=== PATIENT | male | born 1950 | race American Indian/Alaskan Native ===

== ENCOUNTER 2020-11-28 17:04 | Inpatient (IN) ==
[2020-11-28] MEDS ORDERED: 0.9 % SODIUM CHLORIDE 1,000 ML IV ONE ×2 (18:02→19:27)
--- NOTE | 2020-11-28 18:17 | Emergency Department Note ---
Abdominal Pain HPI General Chief Complaint: Abdominal Pain Stated Complaint: abdominal pain Time Seen by Provider: 11/28/20 17:16 Source: patient Mode of arrival: ambulatory Limitations: no limitations History of Present Illness HPI Narrative: This is a 70-year-old poorly controlled diabetic male who is seen for complaints of abdominal pain with persistent nausea and vomiting for the last week and a half. He was seen in the [facility] ER in [place] last night for the very same and a CT of the abdomen pelvis with contrast revealed bilateral renal stones with the largest on the right measuring up to 1.2 cm but no ureteral stone or hydronephrosis. No evidence of diverticulitis. No evidence of appendicitis. The gallbladder and bile ducts were within normal limits. Pancreas was unremarkable. There was a note of a T9-T10 disc space paraspinal inflammatory change that could represent disci tis/osteomyelitis. Patient had a CBC that showed no elevated white blood cell count and he was afebrile. He had a urine dip that was negative. He was discharged home. He underwent an EGD today which was negative for acute findings (his has the report). Patient continues to complain of weakness, fatigue, and lethargy. He is also describing some left upper quadrant abdominal pain. He was noted to have an elevated lipase of 168 last night. He has had a poor appetite for the last 3 days with anorexia for the last 48 hours. He is also complaining of midthoracic back pain. This has been going on for about 2 weeks. It does not radiate. He denies fevers chills or sweats. Denies dysuria or hematuria. Denies changes in bowel habits, denies diarrhea. He was admitted 1 month ago at [facility] for urosepsis. His states that he recovered well from that and then started having the above described symptoms about 2 weeks ago with nausea and vomiting starting about a week and a half ago. He has a history of spinal fusion lumbar spine as well as a spinal stimulator. He is not able to get an MRI. Referral was made for outpatient myelography to rule out discitis definitively, but he is not had this procedure done. He does complain of some bilateral lower extremity weakness and decreased sensation in the right lower extremity. He denies radiculopathy. Related Data Home Medications Medication Instructions Recorded Confirmed aspirin [Ecotrin] 81 mg PO DAILY 02/09/15 11/22/20 cyclobenzaprine 10 mg PO TIDP PRN 02/09/15 11/22/20 enalapril maleate 20 mg PO DAILY 02/09/15 11/22/20 gabapentin 600 mg PO HS 02/09/15 11/22/20 metformin 500 mg PO BIDCC 02/09/15 11/22/20 simvastatin 10 mg PO HS 02/09/15 11/22/20 docusate sodium [Stool Softener] 50 - 150 mg PO WEEKLY PRN 10/01/15 11/22/20 insulin aspart U-100 [Novolog] See Protocol SQ AC 10/01/15 11/22/20 insulin glargine [Lantus] 14 unit SQ HS 10/01/15 11/22/20 lidocaine 1 ea TP Q24HP PRN 10/01/15 11/22/20 polyethylene glycol 3350(bulk) 1 gm MC WEEKLY PRN 10/01/15 11/22/20 tamsulosin 0.4 mg PO DAILY 10/01/15 11/22/20 ergocalciferol (vitamin D2) 50,000 unit PO WEEKLY 10/09/15 11/22/20 [Vitamin D2] duloxetine 60 mg capsule,delayed 60 mg PO QDAY 01/19/20 11/22/20 release sprinkle Previous Rx's Medication Instructions Recorded naloxone 4 mg/actuation nasal spray 4 mg INTRANASAL Q2M #2 each 08/16/20 morphine 100 mg tablet,extended 100 mg PO BID #60 tab MDD 2 11/20/20 release morphine 30 mg immediate release 30 mg PO Q6H PRN #60 tab 11/20/20 tablet Allergies Allergy/AdvReac Type Severity Reaction Status Date / Time No Known Drug Allergies Allergy Verified 11/28/20 17:07 Review of Systems ROS ROS Narrative: Narrative: All systems ED: reviewed and negative except as stated. [facility] Narrative Patient History Narrative: Narrative: Medical/Surgical/Family History All Active Problems (Updated 11/28/20 @ 20:21 by Jessi Prado PA-C) Urinary tract infection (Acute) Diabetic nephropathy (Acute) Hepatomegaly (Acute) Discitis of thoracic region (Acute) Abdominal pain (Acute) Back pain (Acute) Nausea & vomiting (Acute) Radiculopathy, lumbar region (Chronic) Pain, joint, knee, right (Chronic) Pain, joint, knee, left (Chronic) Other chronic postprocedural pain (Chronic) Chronic pain (Chronic) Spondylosis without myelopathy or radiculopathy, lumbar region (Chronic) Knee osteoarthritis (Acute) Medical History Chronic pain Knee osteoarthritis Other chronic postprocedural pain Pain, joint, knee, left Pain, joint, knee, right Radiculopathy, lumbar region Spondylosis without myelopathy or radiculopathy, lumbar region Surgical History History of surgery LESI #1 L2-3 w/sed 03/08/2020 Family History Other No pertinent family history Social History Smoking Status: Former smoker Exam Narrative Narrative: General: AOx3, NAD, nontoxic appearing. Pleasant and conversant. Morbidly obese. HEENT: PERRLA, EOMI, normocephalic. Moist mucous membranes. Normal facies and normal dentition. Chest: Symmetric, no pain to palpation Respiratory: Lungs clear to auscultation bilaterally. No respiratory distress. Unlabored breathing. Heart: Regular rate and rhythm, no murmurs/clicks/rubs. Abdomen: Non-tender, Non distended, normal bowel tones. No organomegaly. Extremities: Warm and well perfused. No edema. DP 2+ bilaterally. No venous stasis. Neuro: No focal deficits. Cranial nerves II-XII normal. Skin: Warm dry, no rashes or lesions, no cyanosis. Psych: Normal mood and affect Heme/Lymph: No bruising General Limitations: no limitations Course Course Course Narrative: 70-year-old male presents with complaints of abdominal pain localized to the left upper quadrant. He also complains of midthoracic back pain with CT scan last night showing inflammatory changes at the T9-T10 level could not rule out discitis/osteomyelitis. Reevaluation(s) Reevaluation #1: Patient is unable to obtain an MRI due to his spinal stimulator. Radiology is not available for myelography tonight. We will obtain a CRP and sed rate. Check a CMP and a CBC. Start IV fluid rehydration and check a lipase. Reevaluation #2: CRP is elevated at 3.6, sed rate is still pending. CBC without leukocytosis. Lipase is within normal limits. Concern remains for T9-T10 discitis based on CT findings from his work-up it [facility] yesterday. We will start IV antibiotics and query the hospitalist for admission and possible myelogram tomorrow. Vital Signs Vital signs: Vital Signs Temperature 97.3 F 11/28/20 17:05 Pulse Rate 90 11/28/20 17:05 Respiratory Rate 16 11/28/20 17:05 Blood Pressure 150/75 11/28/20 17:05 Pulse Oximetry (%) 94 11/28/20 17:05 Temperature 97.3 F 11/28/20 17:05 Pulse Rate 85 11/28/20 20:16 Respiratory Rate 16 11/28/20 17:05 Blood Pressure 163/83 11/28/20 20:16 Pulse Oximetry (%) 96 11/28/20 20:16 MDM MDM Narrative Medical decision making narrative: Abdominal pain Back pain Weakness Discitis/osteomyelitis Antibiotics have been initiated for this patient for discitis/osteomyelitis. He is continued on IV fluids. He has been signed out to Dr. Rodriguez at change of shift, please see his note for further details. Lab Data Result diagrams: 11/28/20 18:12 11/28/20 18:12 Labs: Lab Results 11/28/20 11/28/20 Range/Units 18:12 18:12 WBC 5.4 (4.5-11.0) K/mcL RBC 3.48 L (4.50-5.90) M/mcL Hgb 10.6 L (13.5-16.5) g/dL Hct 31.3 L (41.0-55.0) % MCV 89.9 (80.0-100.0) fL MCH 30.5 (26.0-34.0) pg MCHC 33.9 (31.0-36.0) g/dL RDW 13.4 (11.5-14.5) % Plt Count 178 (140-440) K/mcL MPV 8.6 (7.4-10.4) fL Neut % (Auto) 70.8 (38.0-78.0) % Lymph % (Auto) 18.5 (15.0-49.0) % [place] % (Auto) 8.4 (1.0-12.0) % Eos % (Auto) 1.9 (0.0-7.0) % Baso % (Auto) 0.4 (0.0-2.0) % Lymph # (Auto) 0.99 L (1.50-4.80) K/mcL [place] # (Auto) 0.45 (0.10-0.90) K/mcL Eos # (Auto) 0.10 (0.00-0.70) K/mcL Baso # (Auto) 0.02 (0.00-0.20) K/mcL Absolute Neutrophils 3.79 (1.80-8.00) K/mcL Sodium 135 (133-145) mmol/L Potassium 4.2 (3.3-5.1) mmol/L Chloride 100 (96-108) mmol/L Carbon Dioxide 27 (22-30) mmol/L Anion Gap 8.0 (8.0-16.0) BUN 10 (8-23) mg/dL Creatinine 0.5 L (0.7-1.2) mg/dL GFR Calculation 110 Glucose 129 H (70-105) mg/dL Calcium 8.8 (8.6-10.4) mg/dL Total Bilirubin 0.5 (0.1-1.0) mg/dL AST 23 (<40) U/L ALT 11 (<40) U/L Alkaline Phosphatase 120 H (39-117) U/L C-Reactive Protein 3.60 H (0.03-0.80) mg/dL Total Protein 8.1 (5.9-8.4) gm/dL Albumin 3.0 L (3.2-5.2) gm/dL Globulin 5.1 H (2.2-3.7) gm/dL Albumin/Globulin Ratio 0.6 L (1.0-2.3) Lipase 21 (7-60) U/L Discharge Plan Patient/Caregiver Discharge Instructions Pt seen by TREE WRAPPER/PA only: Yes Clinical Impression: Discitis of thoracic region, Abdominal pain, Back pain, Nausea & vomiting Patient Disposition: Still a Patient Follow up with: Luis Manuel Gil MD [Primary Care Provider] - Prescriptions: No Action Narcan 4 mg/actuation spray,non-aerosol 4 mg INTRANASAL Q2M Qty: 2 RF: 0 duloxetine 60 mg capsule, delayed rel sprinkle 60 mg PO QDAY RF: 0 morphine 100 mg tablet extended release 100 mg PO BID MDD 2 Qty: 60 RF: 0 morphine 30 mg tablet 30 mg PO Q6H PRN (Reason: breakthrough pain) Qty: 60 RF: 0 cyclobenzaprine 10 MG tablet 10 mg PO TIDP PRN (Reason: Spasms) RF: 0 metformin 500 MG tablet 500 mg PO BIDCC RF: 0 gabapentin 600 MG tablet 600 mg PO HS RF: 0 enalapril maleate 20 MG tablet 20 mg PO DAILY RF: 0 simvastatin 10 MG tablet 10 mg PO HS RF: 0 aspirin [Ecotrin Low Strength] 81 MG tablet,delayed release (DR/EC) 81 mg PO DAILY RF: 0 insulin glargine [Lantus U-100 Insulin] 1 UNIT/0.01 ML unit 14 unit SQ HS RF: 0 docusate sodium [Stool Softener] 50 MG capsule 50 - 150 mg PO WEEKLY PRN (Reason: constipaton) RF: 0 tamsulosin 0.4 MG capsule 0.4 mg PO DAILY RF: 0 insulin aspart U-100 [Novolog U-100 Insulin aspart] 100 UNIT/ML solution See Protocol unit SQ AC RF: 0 lidocaine 1 EACH adhesive patch,medicated 1 ea TP Q24HP PRN (Reason: Pain) RF: 0 polyethylene glycol 3350(bulk) 1 GM granules 1 gm MC WEEKLY PRN (Reason: Constipation) RF: 0 ergocalciferol (vitamin D2) [Vitamin D2] 50,000 UNIT capsule 50,000 unit PO WEEKLY RF: 0
[2020-11-28 19:10] LABS: Basophils # (Auto) 0.02 K/mcL (0.00-0.20); Basophils % (Auto) 0.4 % (0.0-2.0); Eosinophils % (Auto) 1.9 % (0.0-7.0); Hematocrit 31.3 % (41.0-55.0); Hemoglobin 10.6 g/dL (13.5-16.5); Lymphocytes # (Auto) 0.99 K/mcL (1.50-4.80); Lymphocytes % (Auto) 18.5 % (15.0-49.0); Mean Cell Volume 89.9 fL (80.0-100.0); Mean Corpuscular HGB Conc 33.9 g/dL (31.0-36.0); Mean Platelet Volume 8.6 fL (7.4-10.4); Monocytes # (Auto) 0.45 K/mcL (0.10-0.90); Monocytes % (Auto) 8.4 % (1.0-12.0); Neutrophils % (Auto) 70.8 % (38.0-78.0); Platelet Count 178 K/mcL (140-440); RBC 3.48 M/mcL (4.50-5.90); Red Cell Distribution Width 13.4 % (11.5-14.5); WBC 5.4 K/mcL (4.5-11.0)
[2020-11-28 19:30] LABS: ALT/SGPT 11 U/L (<40); AST/SGOT 23 U/L (<40); Albumin/Globulin Ratio 0.6 (1.0-2.3); Alkaline Phosphatase 120 U/L (39-117); Bilirubin,Total 0.5 mg/dL (0.1-1.0); Blood Urea Nitrogen 10 mg/dL (8-23); Calcium 8.8 mg/dL (8.6-10.4); Carbon Dioxide 27 mmol/L (22-30); Chloride 100 mmol/L (96-108); Globulin 5.1 gm/dL (2.2-3.7); Glomerular Filtration Rate 110; Glucose 129 mg/dL (70-105)
[2020-11-28] MEDS ORDERED: cefTRIAXone 2 GM in DEXTROSE 5% IN WATER 50 ML IV ONE (19:58)
[2020-11-28] MEDS ORDERED: VANCOMYCIN 2,000 MG in 0.9 % SODIUM CHLORIDE 500 ML IV ONE (19:58)
[2020-11-28] MEDS ORDERED: KETOROLAC 30 MG/ML VIAL IV ONE (20:18)
[2020-11-28] MEDS ORDERED: HYDROmorphone 0.5 MG/0.5 ML SYRINGE IV PRN (20:18)
[2020-11-28 20:26] LABS: Erythrocyte Sedimentation Rate 93 mm/hr (0-15)
--- NOTE | 2020-11-28 20:51 | Emergency Department Note ---
Abdominal Pain HPI General Chief Complaint: Abdominal Pain Stated Complaint: abdominal pain Time Seen by Provider: 11/28/20 17:16 Source: patient Mode of arrival: ambulatory Limitations: no limitations History of Present Illness HPI Narrative: Narrative: Related Data Home Medications Medication Instructions Recorded Confirmed aspirin [Ecotrin] 81 mg PO DAILY 02/09/15 11/22/20 cyclobenzaprine 10 mg PO TIDP PRN 02/09/15 11/22/20 enalapril maleate 20 mg PO DAILY 02/09/15 11/22/20 gabapentin 600 mg PO HS 02/09/15 11/22/20 metformin 500 mg PO BIDCC 02/09/15 11/22/20 simvastatin 10 mg PO HS 02/09/15 11/22/20 docusate sodium [Stool Softener] 50 - 150 mg PO WEEKLY PRN 10/01/15 11/22/20 insulin aspart U-100 [Novolog] See Protocol SQ AC 10/01/15 11/22/20 insulin glargine [Lantus] 14 unit SQ HS 10/01/15 11/22/20 lidocaine 1 ea TP Q24HP PRN 10/01/15 11/22/20 polyethylene glycol 3350(bulk) 1 gm MC WEEKLY PRN 10/01/15 11/22/20 tamsulosin 0.4 mg PO DAILY 10/01/15 11/22/20 ergocalciferol (vitamin D2) 50,000 unit PO WEEKLY 10/09/15 11/22/20 [Vitamin D2] duloxetine 60 mg capsule,delayed 60 mg PO QDAY 01/19/20 11/22/20 release sprinkle Previous Rx's Medication Instructions Recorded naloxone 4 mg/actuation nasal spray 4 mg INTRANASAL Q2M #2 each 08/16/20 morphine 100 mg tablet,extended 100 mg PO BID #60 tab MDD 2 11/20/20 release morphine 30 mg immediate release 30 mg PO Q6H PRN #60 tab 11/20/20 tablet Allergies Allergy/AdvReac Type Severity Reaction Status Date / Time No Known Drug Allergies Allergy Verified 11/28/20 17:07 Review of Systems ROS ROS Narrative: Narrative: PFSH Narrative Patient History Narrative: Narrative: Medical/Surgical/Family History All Active Problems (Updated 11/28/20 @ 20:21 by Jessi Prado PA-C) Urinary tract infection (Acute) Diabetic nephropathy (Acute) Hepatomegaly (Acute) Discitis of thoracic region (Acute) Abdominal pain (Acute) Back pain (Acute) Nausea & vomiting (Acute) Radiculopathy, lumbar region (Chronic) Pain, joint, knee, right (Chronic) Pain, joint, knee, left (Chronic) Other chronic postprocedural pain (Chronic) Chronic pain (Chronic) Spondylosis without myelopathy or radiculopathy, lumbar region (Chronic) Knee osteoarthritis (Acute) Medical History Chronic pain Knee osteoarthritis Other chronic postprocedural pain Pain, joint, knee, left Pain, joint, knee, right Radiculopathy, lumbar region Spondylosis without myelopathy or radiculopathy, lumbar region Surgical History History of surgery LESI #1 L2-3 w/sed 03/08/2020 Family History Other No pertinent family history Social History Smoking Status: Former smoker Exam Narrative Narrative: Narrative: General Limitations: no limitations Course Vital Signs Vital signs: Vital Signs Temperature 97.3 F 11/28/20 17:05 Pulse Rate 90 11/28/20 17:05 Respiratory Rate 16 11/28/20 17:05 Blood Pressure 150/75 11/28/20 17:05 Pulse Oximetry (%) 94 11/28/20 17:05 Temperature 98.8 F 11/28/20 20:43 Pulse Rate 87 11/28/20 20:46 Respiratory Rate 16 11/28/20 17:05 Blood Pressure 145/66 11/28/20 20:46 Pulse Oximetry (%) 95 11/28/20 20:46 MDM MDM Narrative Medical decision making narrative: Narrative: Patient was signed out to me by the TRAN, Jessi, and I agree with work-up and plan thus far. Please see her documentation for further details about the initial aspects of this patient's visit. It is my understanding that the patient was coming in for evaluation of back pain and abdominal pain. This is been slowly getting worse over the past few weeks, and yesterday had a CT scan performed by [facility] which showed possible signs of discitis/osteomyelitis of his thoracic spine. It is unclear why but they discharged him home without any further plan from what I understand. He came in here for reevaluation. Vital signs here are stable and he is not appear to be septic or toxic. Abdominal exam overall is benign. I have low suspicion for acute surgical abdomen. No elevated white blood count, though he does have elevated inflammatory markers of CRP and ESR. Given the findings on the CT scan from yesterday, this is concerning as osteomyelitis/discitis could be potentially a severe infection. Because of this I do feel that he would benefit from further work-up. He has been started on broad-spectrum antibiotics for osteomyelitis/discitis of Rocephin and vancomycin. Blood cultures of been drawn. Unfortunately he does not qualify for an MRI apparently due to a old spinal stimulator he has in place. We discussed options with the radiologist and he stated that the patient could be scheduled for a myelogram tomorrow for evaluation of this. I discussed this all with the hospitalist who agreed with the plan of admission. Patient and his w rehana agree with the plan as well. Lab Data Result diagrams: 11/28/20 18:12 11/28/20 18:12 Labs: Lab Results 11/28/20 11/28/20 Range/Units 18:12 18:12 WBC 5.4 (4.5-11.0) K/mcL RBC 3.48 L (4.50-5.90) M/mcL Hgb 10.6 L (13.5-16.5) g/dL Hct 31.3 L (41.0-55.0) % MCV 89.9 (80.0-100.0) fL MCH 30.5 (26.0-34.0) pg MCHC 33.9 (31.0-36.0) g/dL RDW 13.4 (11.5-14.5) % Plt Count 178 (140-440) K/mcL MPV 8.6 (7.4-10.4) fL Neut % (Auto) 70.8 (38.0-78.0) % Lymph % (Auto) 18.5 (15.0-49.0) % [place] % (Auto) 8.4 (1.0-12.0) % Eos % (Auto) 1.9 (0.0-7.0) % Baso % (Auto) 0.4 (0.0-2.0) % Lymph # (Auto) 0.99 L (1.50-4.80) K/mcL [place] # (Auto) 0.45 (0.10-0.90) K/mcL Eos # (Auto) 0.10 (0.00-0.70) K/mcL Baso # (Auto) 0.02 (0.00-0.20) K/mcL Absolute Neutrophils 3.79 (1.80-8.00) K/mcL ESR 93 H (0-15) mm/hr Sodium 135 (133-145) mmol/L Potassium 4.2 (3.3-5.1) mmol/L Chloride 100 (96-108) mmol/L Carbon Dioxide 27 (22-30) mmol/L Anion Gap 8.0 (8.0-16.0) BUN 10 (8-23) mg/dL Creatinine 0.5 L (0.7-1.2) mg/dL GFR Calculation 110 Glucose 129 H (70-105) mg/dL Calcium 8.8 (8.6-10.4) mg/dL Total Bilirubin 0.5 (0.1-1.0) mg/dL AST 23 (<40) U/L ALT 11 (<40) U/L Alkaline Phosphatase 120 H (39-117) U/L C-Reactive Protein 3.60 H (0.03-0.80) mg/dL Total Protein 8.1 (5.9-8.4) gm/dL Albumin 3.0 L (3.2-5.2) gm/dL Globulin 5.1 H (2.2-3.7) gm/dL Albumin/Globulin Ratio 0.6 L (1.0-2.3) Lipase 21 (7-60) U/L Discharge Plan Patient/Caregiver Discharge Instructions Pt seen by ACADEMIC SUPPORT ASSISTANT/PA only: Yes Clinical Impression: Discitis of thoracic region, Abdominal pain, Back pain, Nausea & vomiting Patient Disposition: Still a Patient Follow up with: Luis Manuel Gil MD [Primary Care Provider] - Prescriptions: No Action Narcan 4 mg/actuation spray,non-aerosol 4 mg INTRANASAL Q2M Qty: 2 RF: 0 duloxetine 60 mg capsule, delayed rel sprinkle 60 mg PO QDAY RF: 0 morphine 100 mg tablet extended release 100 mg PO BID MDD 2 Qty: 60 RF: 0 morphine 30 mg tablet 30 mg PO Q6H PRN (Reason: breakthrough pain) Qty: 60 RF: 0 cyclobenzaprine 10 MG tablet 10 mg PO TIDP PRN (Reason: Spasms) RF: 0 metformin 500 MG tablet 500 mg PO BIDCC RF: 0 gabapentin 600 MG tablet 600 mg PO HS RF: 0 enalapril maleate 20 MG tablet 20 mg PO DAILY RF: 0 simvastatin 10 MG tablet 10 mg PO HS RF: 0 aspirin [Ecotrin Low Strength] 81 MG tablet,delayed release (DR/EC) 81 mg PO DAILY RF: 0 Lantus U-100 Insulin 1 UNIT/0.01 ML unit 14 unit SQ HS RF: 0 Stool Softener 50 MG capsule 50 - 150 mg PO WEEKLY PRN (Reason: constipaton) RF: 0 tamsulosin 0.4 MG capsule 0.4 mg PO DAILY RF: 0 insulin aspart U-100 [Novolog U-100 Insulin aspart] 100 UNIT/ML solution See Protocol unit SQ AC RF: 0 lidocaine 1 EACH adhesive patch,medicated 1 ea TP Q24HP PRN (Reason: Pain) RF: 0 polyethylene glycol 3350(bulk) 1 GM granules 1 gm MC WEEKLY PRN (Reason: Constipation) RF: 0 ergocalciferol (vitamin D2) [Vitamin D2] 50,000 UNIT capsule 50,000 unit PO WEEKLY RF: 0
[2020-11-28] MEDS ORDERED: ONDANSETRON 4 MG/2 ML VIAL IV ONE (20:54)
[2020-11-28] MEDS ORDERED: BISACODYL 10 MG SUPP.RECT PR PRN (22:17)
[2020-11-28] MEDS ORDERED: VANCOMYCIN PER PHARMACY IV SCH (22:17)
[2020-11-28] MEDS ORDERED: DEXTROSE 31 GM ORAL.SUSP PO PRN (22:17)
[2020-11-28] MEDS ORDERED: ACETAMINOPHEN 650 MG/65 ML BAG IV PRN (22:17)
[2020-11-28] MEDS ORDERED: POLYETHYLENE GLYCOL 3350 17 GM PACKET PO PRN (22:17)
[2020-11-28] MEDS ORDERED: POTASSIUM CHLORIDE 40 MEQ in DEXTROSE 5% IN WATER 500 ML IV PRN (22:17)
[2020-11-28] MEDS ORDERED: DEXTROSE 50% 50 ML VIAL IV PRN (22:17)
[2020-11-28] MEDS ORDERED: ACETAMINOPHEN 325 MG TABLET PO PRN (22:17)
[2020-11-28] MEDS ORDERED: ONDANSETRON 4 MG ODT TABLET SL PRN (22:17)
[2020-11-28] MEDS ORDERED: ONDANSETRON 4 MG/2 ML VIAL IV PRN (22:17)
[2020-11-28] MEDS: 0.9 % SODIUM CHLORIDE 1,000 ML IV SCH (22:34)
[2020-11-28] MEDS ORDERED: POLYETHYLENE GLYCOL 1 GM MC PRN (22:37)
[2020-11-28] MEDS ORDERED: DOCUSATE SODIUM 50 MG PO PRN (22:37)
[2020-11-28] MEDS ORDERED: MORPHINE 30 MG PO PRN (22:37)
[2020-11-28] MEDS ORDERED: LIDOCAINE PATCH TOPICAL PRN (22:37)
--- NOTE | 2020-11-28 22:37 | Internal Med History&Physical ---
HPI History of Present Illness Patient information: Note initiated : 11/28/20 at 10:25 pm Service Date, if different from initiated Date: [] Patient: Flex Chavez 70 y/o M admitted on 11/28/20 for abdominal pain. Chief Complaint: Nausea vomiting abdominal pain, chills History of present illness: Mr. Keeley Mo is a 70 year old M morbidly obese with a history of chronic pain on 300 mg morphine a day/DM type II/HTN/anxiety/(who presents to the ER with increasing weakness/abdominal pain. Patient has had the symptoms for a while and underwent EGD as an Luis today by Dr. Lovelace that revealed gastritis. However he was advised to go to the ER because symptoms were out of proportion to the findings of endoscopy. Notably patient has been progressively getting weaker over the last month since he was admitted at [facility] on October 25 this year. He has noted gradual decline in functionality/associate loss of appetite/lower back pain/malaise/drenching sweats and fever. Night before last he was evaluated at [facility] with similar symptoms. CT scan revealed T9-T10 suspected discitis/vertebral osteomyelitis however he was discharged home after short treatment in ER During today's work-up at [facility] White count 5.4, ESR 93, sodium 135, creatinine 0.5, CRP 3.6, lipase 21.CT scan reviewed from [facility] for T9-T10 discitis/bilateral nonobstructive nephrolithiasis. Patient was started on antibiotics after cultures were drawn. Subsequently hospitalist service was consulted. At the time of my evaluation patient is alert but anxious. He is accompanied with his Alice. She was able to answer most the question and provide history as above. He denies loss of bladder function or stool or urine incontinence. Further denies lower extremity abnormal sensation/weakness/jerking movements. He denies joint pain, rash, headache, photophobia but endorses to generalized malaise weakness fatigue and persistent abdominal pain associated nausea and vomiting. Review of systems 10 point review system was performed and is negative except for 1 discussed above PFSH PFSH All Active Problems (Updated 11/28/20 @ 20:21 by Jessi Prado PA-C) Urinary tract infection (Acute) Diabetic nephropathy (Acute) Hepatomegaly (Acute) Discitis of thoracic region (Acute) Abdominal pain (Acute) Back pain (Acute) Nausea & vomiting (Acute) Radiculopathy, lumbar region (Chronic) Pain, joint, knee, right (Chronic) Pain, joint, knee, left (Chronic) Other chronic postprocedural pain (Chronic) Chronic pain (Chronic) Spondylosis without myelopathy or radiculopathy, lumbar region (Chronic) Knee osteoarthritis (Acute) Medical History Chronic pain Knee osteoarthritis Other chronic postprocedural pain Pain, joint, knee, left Pain, joint, knee, right Radiculopathy, lumbar region Spondylosis without myelopathy or radiculopathy, lumbar region Surgical History History of surgery LESI #1 L2-3 w/sed 03/08/2020 Family History Other No pertinent family history MEDS/ALLERGIES Home Medications and Allergies Home Medications Medication Instructions Recorded Confirmed Type aspirin [Ecotrin] 81 mg PO DAILY 02/09/15 11/28/20 History cyclobenzaprine 10 mg PO TIDP PRN 02/09/15 11/28/20 History enalapril maleate 20 mg PO DAILY 02/09/15 11/28/20 History gabapentin 600 mg PO HS 02/09/15 11/28/20 History metformin 500 mg PO BIDCC 02/09/15 11/28/20 History simvastatin 10 mg PO 02/09/15 11/28/20 History docusate sodium [Stool Softener] 50 - 150 mg PO WEEKLY PRN 10/01/15 11/28/20 History insulin aspart U-100 [Novolog] See Protocol SQ AC 10/01/15 11/28/20 History insulin glargine [Lantus] 14 unit SQ HS 10/01/15 11/28/20 History lidocaine 1 ea TP Q24HP PRN 10/01/15 11/28/20 History polyethylene glycol 3350(bulk) 1 gm MC WEEKLY PRN 10/01/15 11/28/20 History tamsulosin 0.4 mg PO DAILY 10/01/15 11/28/20 History ergocalciferol (vitamin D2) 50,000 unit PO WEEKLY 10/09/15 11/28/20 History [Vitamin D2] duloxetine 60 mg capsule,delayed 60 mg PO QDAY 01/19/20 11/28/20 History release sprinkle naloxone 4 mg/actuation nasal spray 4 mg INTRANASAL Q2M #2 each 08/16/20 11/28/20 Rx morphine 100 mg tablet,extended 100 mg PO BID #60 tab MDD 2 11/20/20 11/28/20 Rx release morphine 30 mg immediate release 30 mg PO Q6H PRN #60 tab 11/20/20 11/28/20 Rx tablet Allergies Allergy/AdvReac Type Severity Reaction Status Date / Time No Known Drug Allergies Allergy Verified 11/28/20 17:07 EXAM Constitutional Vitals: Temp Pulse Resp BP Pulse Ox 98.8 F 78 16 165/105 98 11/28/20 20:43 11/28/20 21:31 11/28/20 17:05 11/28/20 21:31 11/28/20 21:31 Alert but anxious Head normocephalic Oral cavity moist No ear nose discharge Eye movement symmetrical Neck supple no lymphadenopathy S1-S2 occasionally irregular Nonlabored breathing Nondistended nontender abdomen Spinal stimulator lower back, with midline incision scar lumbar spine Lower extremity no cyanosis clubbing or joint swelling Skin no suspicious lesion Psych anxious but alert cooperative Neuro normal higher function DATA Data Completed and Pending Labs: Labs from last 24 hours 11/28/20 11/28/20 18:12 18:12 WBC 5.4 RBC 3.48 L Hgb 10.6 L Hct 31.3 L MCV 89.9 MCH 30.5 MCHC 33.9 RDW 13.4 Plt Count 178 MPV 8.6 Neut % (Auto) 70.8 Lymph % (Auto) 18.5 [place] % (Auto) 8.4 Eos % (Auto) 1.9 Baso % (Auto) 0.4 Lymph # (Auto) 0.99 L [place] # (Auto) 0.45 Eos # (Auto) 0.10 Baso # (Auto) 0.02 Absolute Neutrophils 3.79 ESR 93 H Sodium 135 Potassium 4.2 Chloride 100 Carbon Dioxide 27 Anion Gap 8.0 BUN 10 Creatinine 0.5 L GFR Calculation 110 Glucose 129 H Calcium 8.8 Total Bilirubin 0.5 AST 23 ALT 11 Alkaline Phosphatase 120 H C-Reactive Protein 3.60 H Total Protein 8.1 Albumin 3.0 L Globulin 5.1 H Albumin/Globulin Ratio 0.6 L Lipase 21 A/P Narrative A/P Narrative: * T9/T10 discitis- start empiric Rocephin/vancomycin. Blood cultures. Suspected hematogenous seeding. Aggressive source evaluation. CT myelogram in a.m. * DM type II continue basal prandial insulin/CC diet/reduction * History of hypertension continue enalapril * Anxiety disorder continue oxygen * Chronic pain on morphine 100 mg twice daily/intermediate release 30 as needed * Hyperlipidemia on statin * BPH continue tamsulosin * Full code Plan * Inpt admit * Broad empiric antibiotics * Echocardiogram * Aggressive source evaluation with surveillance blood cultures * Pre-existing medical condition management on home medications as above * ID consult * CT myelogram in a.m. * PT OT nutrition support Time Spent With Patient Time: Total time spent is greater than 50% in coordination of care (as documented) at patient's floor/unit and/or counseling patient:
[2020-11-28] MEDS: INSULIN LISPRO 1 UNIT/0.01 ML UNIT SQ SCH (23:17)
[2020-11-28] MEDS ORDERED: morphine 15 MG TABLET ONE (23:38)
[2020-11-28] MEDS ORDERED: HEPARIN 5,000 UNIT/ML VIAL ONE (23:39)
[2020-11-28] MEDS: cefTRIAXone 2 GM in DEXTROSE 5% IN WATER 50 ML IV SCH (23:41)
[2020-11-28] MEDS: 0.9 % SODIUM CHLORIDE 10 ML SYRINGE IV SCH (23:41)
[2020-11-28] MEDS: HEPARIN 5,000 UNIT/ML VIAL SQ SCH (23:41)
[2020-11-28] MEDS: DOCUSATE SODIUM 100 MG CAPSULE PO SCH (23:46)
[2020-11-28] MEDS: SENNOSIDES/DOCUSATE SODIUM 1 TAB TABLET PO SCH (23:47)
[2020-11-29] MEDS ORDERED: MELATONIN 3 MG TABLET PO ONE (00:59)
[2020-11-29] MEDS: MELATONIN 3 MG TABLET PO PRN (00:59)
[2020-11-29] MEDS ORDERED: DOCUSATE SODIUM 100 MG PO PRN (02:30)
[2020-11-29] MEDS: 0.9 % SODIUM CHLORIDE 10 ML SYRINGE IV SCH ×3 (05:18→22:22)
[2020-11-29] MEDS: morphine 30 MG TAB.SR.12H PO SCH ×2 (07:07→20:43)
[2020-11-29] MEDS: INSULIN LISPRO 1 UNIT/0.01 ML UNIT SQ SCH ×4 (07:22→20:50)
[2020-11-29 07:44] LABS: Basophils # (Auto) 0.04 K/mcL (0.00-0.20); Basophils % (Auto) 0.6 % (0.0-2.0); Eosinophils % (Auto) 1.6 % (0.0-7.0); Hematocrit 31.9 % (41.0-55.0); Hemoglobin 10.7 g/dL (13.5-16.5); Lymphocytes # (Auto) 0.93 K/mcL (1.50-4.80); Lymphocytes % (Auto) 14.9 % (15.0-49.0); Mean Cell Volume 90.4 fL (80.0-100.0); Mean Corpuscular HGB Conc 33.5 g/dL (31.0-36.0); Mean Platelet Volume 8.8 fL (7.4-10.4); Monocytes # (Auto) 0.33 K/mcL (0.10-0.90); Monocytes % (Auto) 5.3 % (1.0-12.0); Neutrophils % (Auto) 77.6 % (38.0-78.0); Platelet Count 174 K/mcL (140-440); RBC 3.53 M/mcL (4.50-5.90); Red Cell Distribution Width 13.3 % (11.5-14.5); WBC 6.2 K/mcL (4.5-11.0)
[2020-11-29] MEDS ORDERED: DULAGLUTIDE 1.5 MG/0.5 ML SUB-Q SCH (09:00)
[2020-11-29] MEDS ORDERED: ENALAPRIL MALEATE 20 MG PO SCH (09:00)
[2020-11-29] MEDS ORDERED: morphine 100 MG TABLET.ER PO SCH (09:00)
[2020-11-29 09:03] LABS: ALT/SGPT 10 U/L (<40); AST/SGOT 24 U/L (<40); Albumin 2.9 gm/dL (3.2-5.2); Albumin/Globulin Ratio 0.6 (1.0-2.3); Alkaline Phosphatase 117 U/L (39-117); Bilirubin,Direct < 0.2 mg/dL (0-0.3); Bilirubin,Total 0.5 mg/dL (0.1-1.0); Blood Urea Nitrogen 10 mg/dL (8-23); Calcium 8.7 mg/dL (8.6-10.4); Carbon Dioxide 24 mmol/L (22-30); Chloride 99 mmol/L (96-108); Globulin 4.8 gm/dL (2.2-3.7); Glomerular Filtration Rate 110; Glucose 103 mg/dL (70-105); Lactate Dehydrogenase 201 U/L (135-225); Phosphorous 3.3 mg/dL (2.5-4.5); Triglycerides 109 mg/dL (<150); Uric Acid 4.2 mg/dL (2.5-8.0)
[2020-11-29] MEDS: MULTIVIT,THER IRON,CA,FA & MIN 1 TABLET PO SCH (10:16)
[2020-11-29] MEDS: DOCUSATE SODIUM 100 MG CAPSULE PO SCH ×2 (10:16→20:45)
[2020-11-29] MEDS: DULoxetine 30 MG CAPSULE PO SCH (10:16)
[2020-11-29] MEDS: sitaGLIPtin 100 MG TABLET PO SCH (10:16)
[2020-11-29] MEDS: TAMSULOSIN 0.4 MG CAPSULE PO SCH (10:16)
[2020-11-29] MEDS: ASPIRIN 81 MG TAB.CHEW PO SCH (10:16)
[2020-11-29] MEDS: HEPARIN 5,000 UNIT/ML VIAL SQ SCH ×2 (10:17→20:47)
[2020-11-29] MEDS: VANCOMYCIN 1,500 MG in 0.9 % SODIUM CHLORIDE 500 ML IV SCH ×2 (10:17→20:47)
[2020-11-29] MEDS: PANTOPRAZOLE 40 MG TABLET PO SCH ×2 (10:22→17:02)
--- NOTE | 2020-11-29 10:46 | Internal Med Progress Note ---
SUBJECTIVE Subjective Patient information: Note initiated : 11/29/20 at 10:41 am Service Date, if different from initiated Date: [] Patient: Flex Chavez 70 y/o M admitted on 11/28/20 for abdominal pain. Chief Complaint: [] Interval history: Mr. Keeley Mo is a 70 year old M morbidly obese with a history of chronic pain on 300 mg morphine a day/DM type II/HTN/anxiety/(who presents to the ER with increasing weakness/abdominal pain. Patient has had the symptoms for a while and underwent EGD as an Luis today by Dr. Lovelace that revealed gastritis. However he was advised to go to the ER because symptoms were out of proportion to the findings of endoscopy. Notably patient has been progressively getting weaker over the last month since he was admitted at [place] on October 25 this year. He has noted gradual decline in function ality/associate loss of appetite/lower back pain/malaise/drenching sweats and fever. Night before last he was evaluated at [facility] with similar symptoms. CT scan revealed T9-T10 suspected discitis/vertebral osteomyelitis however he was discharged home after short treatment in ER During today's work-up at [facility] White count 5.4, ESR 93, sodium 135, creatinine 0.5, CRP 3.6, lipase 21.CT scan reviewed from [facility] for T9-T10 discitis/bilateral nonobstructive nephrolithiasis. Patient was started on antibiotics after cultures were drawn. Subsequently hospitalist service was consulted. At the time of my evaluation patient is alert but anxious. He is accompanied with his Alice. She was able to answer most the question and provide history as above. He denies loss of bladder function or stool or urine incontinence. Further denies lower extremity abnormal sensation/weakness/jerking movements. He denies joint pain, rash, headache, photophobia but endorses to generalized malaise weakness fatigue and persistent abdominal pain associated nausea and vomiting. 5/6-patient currently on Rocephin/vancomycin. Case discussed with urology. No clear benefit of CT myelogram. Radiologist recommends continuation of antibiotics as disc space is hard to access for aspiration to rule out infection and the fact that patient has been on antibiotics for over 10 days will likely do a steroid tap. Will consult infectious specialist while continuing vancomy latrell Rocephin per guidelines for management discitis. No evidence of lower extremity weakness/incontinence or cord compression. Complains of abdominal discomfort/burning sensation. Recent EGD gastritis noted. Started on sucralfate/Protonix. On oral narcotics for chronic pain Constitutional Vitals: Vital Signs Temp Pulse Resp BP Pulse Ox 98.2 F 69 24 H 127/49 94 11/29/20 08:02 11/29/20 10:01 11/29/20 10:01 11/29/20 10:01 11/29/20 10:01 Period Temp Pulse Resp BP Sys/Velazquez Pulse Ox Last 24 Hr 97.3 F-99.1 F 61-91 14-24 127-176/49-105 91-100 Intake and Output 11/28/20 11/29/20 11/29/20 21:59 05:59 13:59 Intake Total 1000 1650 Output Total 525 Balance 1000 1125 Weight 122.924 kg 125.464 kg Alert oriented Resting comfortably Nonlabored breathing Anxious Minimally tender abdomen epigastric area Intake & Output: Intake & Output 11/28/20 11/29/20 11/29/20 21:59 05:59 13:59 Intake Total 1000 1650 Output Total 525 Balance 1000 1125 Weight 122.924 kg 125.464 kg Intake: IV 1000 1600 Sodium Chloride 0.9% 1,000 ml @ 1000 1000 Wide Open IV BOLUS ONE Rx#: [id number] Vancomycin 2,000 mg In Sodium 500 Chloride 0.9% 500 ml @ 250 mls/ hr IV ONCE ONE Rx#:[id number] Rocephin 2 gm In Dextrose 5% in 100 Water 50 ml @ 100 mls/hr IV ONCE ONE Rx#:[id number] Oral 50 Output: Void Amount 525 Other: Urine Appearance Clear Urine Color Dark Yellow Stool Consistency Loose OBJ DATA Labs CBC & Chem 7: 11/29/20 05:15 11/29/20 05:15 Labs: Abnormal Lab Results 11/29/20 11/29/20 11/28/20 05:15 05:15 22:36 RBC 3.53 L Hgb 10.7 L Hct 31.9 L Lymph % (Auto) 14.9 L Lymph # (Auto) 0.93 L ESR Creatinine 0.5 L Glucose Magnesium 1.5 L GGT 143 H Alkaline Phosphatase C-Reactive Protein 3.70 H Albumin 2.9 L Globulin 4.8 H Albumin/Globulin Ratio 0.6 L Procalcitonin 0.18 H 11/28/20 11/28/20 18:12 18:12 RBC 3.48 L Hgb 10.6 L Hct 31.3 L Lymph % (Auto) Lymph # (Auto) 0.99 L ESR 93 H Creatinine 0.5 L Glucose 129 H Magnesium GGT Alkaline Phosphatase 120 H C-Reactive Protein 3.60 H Albumin 3.0 L Globulin 5.1 H Albumin/Globulin Ratio 0.6 L Procalcitonin Meds: Medications Acetaminophen (Acetaminophen 325 Mg Tablet) 650 mg PO Q4-6HP PRN; Protocol PRN Reason: Per Pain Protocol/Fever > 101 Aspirin (Aspirin 81 Mg Tab.Chew) 81 mg PO DAILY [facility] Last Admin: 11/29/20 10:16 Dose: 81 mg Documented by: Bisacodyl (Bisacodyl 10 Mg Supp.Rect) 10 mg IA Q2-3DAYS PRN PRN Reason: Constipation Cyclobenzaprine HCl (Cyclobenzaprine 10 Mg Tablet) 10 mg PO TIDP PRN PRN Reason: Spasms Dextrose (Dextrose 50% 50 Ml Vial) 0 ml IV UD PRN PRN Reason: Hypoglycemia Diagnostic Test (Pha) (Accu-Chek 1 Each Strip) 1 each FS ACHS [facility] Last Admin: 11/29/20 07:08 Dose: 1 each Documented by: Docusate Sodium (Docusate Sodium 100 Mg Capsule) 100 mg PO BID [facility] Last Admin: 11/29/20 10:16 Dose: 100 mg Documented by: Duloxetine HCl (Duloxetine 30 Mg Capsule) 60 mg PO QDAY [facility] Last Admin: 11/29/20 10:16 Dose: 60 mg Documented by: Ergocalciferol (Ergocalciferol (Vitamin D2) 50,000 Unit Capsule) 50,000 unit PO Q14D [facility] Gabapentin (Gabapentin 300 Mg Capsule) 600 mg PO HS [facility] Glucose (Dextrose 31 Gm Oral.Susp) 15 gm PO PRN PRN PRN Reason: Hypoglycemia Heparin Sodium (Porcine) (Heparin 5,000 Unit/Ml Vial) 5,000 unit SQ Q12 [facility] Last Admin: 11/29/20 10:17 Dose: 5,000 unit Documented by: Hydromorphone HCl (Hydromorphone 0.5 Mg/0.5 Ml Syringe) 0.25 - 0.5 mg IV Q4HP PRN; Protocol PRN Reason: Per Pain Protocol Potassium Chloride 40 meq/ (Dextrose) 520 mls @ 130 mls/hr IV UD PRN PRN Reason: K+ = or < 3.5 Acetaminophen (Ofirmev) 650 mg in 65 mls @ 130 mls/hr IV Q6HP PRN; Protocol PRN Reason: Per Pain Protocol/Fever > 101 Magnesium Sulfate (Magnesium Sulfate) 2 gm in 50 mls @ 50 mls/hr IV UD PRN PRN Reason: MG = or < 1.7 Sodium Chloride (Sodium Chloride 0.9%) 1,000 mls @ 50 mls/hr IV .Q20H [facility] Stop: 12/01/20 10:16 Last Admin: 11/28/20 22:34 Dose: 50 mls/hr Documented by: Ceftriaxone Sodium 2 gm/ (Dextrose) 50 mls @ 100 mls/hr IV Q24H [facility]; Protocol Last Infusion: 11/29/20 02:25 Dose: Infused Documented by: Vancomycin HCl 1,500 mg/ (Sodium Chloride) 500 mls @ 333.3 mls/hr IV Q12H [facility] Last Admin: 11/29/20 10:17 Dose: 333.3 mls/hr Documented by: Insulin Glargine (Insulin Glargine, Human 1 Unit/0.01 Ml) 14 unit SQ [facility] Insulin Human Lispro (Insulin Lispro 1 Unit/0.01 Ml Unit) 0 unit SQ ACHS [facility]; Protocol Last Admin: 11/29/20 07:22 Dose: Not Given Documented by: Iron Carb/Multivit/Confluence/Folic Acid (Multivit,Ther Iron,Ca,Fa & Min 1 Tablet) 1 tab PO DAILY [facility] Last Admin: 11/29/20 10:16 Dose: 1 tab Documented by: Lidocaine (Lidocaine Patch) 1 patch TOPICAL Q24HP PRN PRN Reason: Pain Melatonin (Melatonin 3 Mg Tablet) 3 mg PO HSP PRN PRN Reason: Insomnia Last Admin: 11/29/20 00:59 Dose: 3 mg Documented by: Morphine Sulfate (Morphine 15 Mg Tablet) 30 mg PO Q6HP PRN PRN Reason: breakthrough pain Morphine Sulfate (Morphine 30 Mg Tab.Sr.12h) 90 mg PO BID [facility]; Protocol Last Admin: 11/29/20 07:07 Dose: 90 mg Documented by: Non-Formulary Medication (Dulaglutide) 1.5 mg SUB-Q WEEKLY [facility] Ondansetron HCl (Ondansetron 4 Mg Odt Tablet) 4 mg SL Q4-6HP PRN; Protocol PRN Reason: Nausea And Vomiting Ondansetron HCl (Ondansetron 4 Mg/2 Ml Vial) 4 mg IV Q4-6HP PRN; Protocol PRN Reason: Nausea And Vomiting Pantoprazole Sodium (Pantoprazole 40 Mg Tablet) 40 mg PO BIDAC [facility] Last Admin: 11/29/20 10:22 Dose: 40 mg Documented by: Polyethylene Glycol (Polyethylene Glycol 3350 17 Gm Packet) 17 gm PO DAILYP PRN PRN Reason: Constipation Senna/Docusate Sodium (Sennosides/Docusate Sodium 1 Tab Tablet) 1 tab PO [facility] Last Admin: 11/28/20 23:47 Dose: Not Given Documented by: Simvastatin (Simvastatin 10 Mg Tablet) 10 mg PO [facility] Sitagliptin Phosphate (Sitagliptin 100 Mg Tablet) 100 mg PO DAILY [facility] Last Admin: 11/29/20 10:16 Dose: 100 mg Documented by: Sodium Chloride (0.9 % Sodium Chloride 10 Ml Syringe) 10 ml IV Q8 [facility] Last Admin: 11/29/20 05:18 Dose: Not Given Documented by: Sucralfate (Sucralfate 1 Gm/10 Ml Oral.Susp) 1 gm PO TIDAC [facility] Tamsulosin HCl (Tamsulosin 0.4 Mg Capsule) 0.4 mg PO DAILY [facility] Last Admin: 11/29/20 10:16 Dose: 0.4 mg Documented by: Vancomycin HCl (Vancomycin Per Pharmacy) 1 order IV UD [facility]; Protocol A/P Narrative A/P Narrative: * T9/T10 discitis-continuing empiric Rocephin/vancomycin. Blood cultures awaited. Suspected hematogenous seeding., No clear benefit of myelogram as per radiology. We will continue antibiotic coverage, ID consult * DM type II continue basal prandial insulin/CC diet/reduction * History of hypertension continue enalapril * Esophagitis with gastritis as noted on EGD 11/28. Continue sucralfate/PPI * Anxiety disorder continue duloxetine * Chronic pain on morphine 100 mg twice daily/intermediate release 30 as needed * Hyperlipidemia on simvastatin * History of hypertension continue DAPHNE inhibitor * History neuropathy continue gabapentin * BPH continue tamsulosin * Full code Plan * ID consult * Broad empiric antibiotics * Await echocardiogram * Pre-existing medical condition management on home medications as above * PT OT nutrition support * Discharge planning per case management Time Spent With Patient Time: Total time spent is greater than 50% in coordination of care (as doc umented) at patient's floor/unit and/or counseling patient: QUALITY VTE Deep Vein Thrombosis/Pulmonary Embolism Present on Admission: No
[2020-11-29] MEDS: LISINOPRIL 20 MG TABLET PO SCH (11:01)
[2020-11-29] MEDS: morphine 15 MG TABLET PO PRN ×2 (11:02→18:56)
[2020-11-29] MEDS: SUCRALFATE 1 GM/10 ML ORAL.SUSP PO SCH ×2 (11:17→17:02)
[2020-11-29] MEDS: HYDROmorphone 0.5 MG/0.5 ML SYRINGE IV PRN ×3 (11:18→22:33)
[2020-11-29] MEDS ORDERED: PROTAMINE 50 MG/5 ML VIAL IV ONE (12:13)
[2020-11-29] MEDS ORDERED: MIDAZOLAM 2 MG/2 ML VIAL IV ONE (14:28)
[2020-11-29] MEDS ORDERED: fentaNYL 100 MCG/2 ML VIAL IV ONE (14:28)
[2020-11-29] MEDS ORDERED: LIDOCAINE 1% 20 ML VIAL SQ ONE (15:27)
[2020-11-29] MEDS: cefTRIAXone 2 GM in DEXTROSE 5% IN WATER 50 ML IV SCH (15:34)
[2020-11-29] MEDS: MAGNESIUM SULFATE 2 GM/50 ML BAG IV PRN (16:58)
--- NOTE | 2020-11-29 17:42 | Infectious Disease Consult ---
HPI Data of Consult Primary Care Provider: Luis Manuel Gil Consult Narrative Patient Information: Note initiated : 11/29/20 at 5:24 pm Service Date, if different from initiated Date: [] Patient: Flex Chavez 70 y/o M admitted on 11/28/20 for abdominal pain. Chief Complaint: [] Flex is a 70-year-old man with obesity and diabetes. He was transferred from [place] for admission at [facility] yesterday with he currently rates his pain at 3 out of 10. He had a CT scan completed November 27 of abdomen and pelvis. Bilateral nephrolithiasis was identified. He also had findings of T9-T10 discitis with osteomyelitis. He had upper endoscopy yesterday to evaluate abdominal pain. It revealed gastritis. He was started on vancomycin and Rocephin yesterday. Dr. Casper asked for consultation for treatment of discitis. Radiology was able to sample T9-T10 disc space today for Gram stain, aerobic and anaerobic bacterial culture as well as 16 S ribosomal PCR panel. He last had a lumbar epidural steroid injection March 08, 2020. He has a previous history of right total shoulder arthroplasty and right total knee arthroplasty. He was hospitalized at [facility] October 25 through October 28 For urinary tract infection. He e vidently also had continued oral antibiotic therapy by his primary care provider for persistent UTI. is not familiar with bacterial organism reported to her. Sed rate yesterday 93 he has had worsening back and left upper quadrant discomfort for the past 3 weeks. He has had decreased ability to walk. He lives in [place]. Dr. Gil in [facility] is his primary care provider. He discontinued tobacco in 1989. 2 dogs at home. He also recalls having subjective fevers and sweats 2-3 times over the past 3 weeks. cc:: CC: Real Roque Review of Systems Review of systems: Generally: Subjective fevers and chills 2-3 times over the last 3 weeks. No documented fevers. HEENT: No headache or sore throat. No neck complaints. Pulmonary: No current cough or shortness of breath. Cardiac: No chest pain. GI: No constipation or diarrhea. Previous cholecystectomy. He reports left upper quadrant discomfort. Musculoskeletal. Positive back pain currently 3 out of 10. He has a history of spinal cord stimulator placement approximately 1999. It is currently nonfunctional. He has a previous history of lumbar fusion in 2002 L4-S1. He reports that his back pain is more in the mid back and then low back. : Identified bilateral kidney stones up to 1.2 cm. He plans to have follow-up with urology. Extremities: No complaints of edema. Skin no rash. He denies joint pain in right shoulder or right knee which have previously been replaced. Endocrine: He reports diabetes for approximately 12 years. Immunology: The only infection that he reports recently was the UTI hospitalization at [facility] in October 25 to October 28. PFSH PFSH All Active Problems (Updated 11/29/20 @ 17:42 by Armani Pfeiffer MD) Diabetes mellitus (Acute) Urinary tract infection (Acute) Diabetic nephropathy (Acute) Hepatomegaly (Acute) Discitis of thoracic region (Acute) Abdominal pain (Acute) Back pain (Acute) Nausea & vomiting (Acute) Radiculopathy, lumbar region (Chronic) Pain, joint, knee, right (Chronic) Pain, joint, knee, left (Chronic) Other chronic postprocedural pain (Chronic) Chronic pain (Chronic) Spondylosis without myelopathy or radiculopathy, lumbar region (Chronic) Knee osteoarthritis (Acute) Medical History Chronic pain Knee osteoarthritis Other chronic postprocedural pain Pain, joint, knee, left Pain, joint, knee, right Radiculopathy, lumbar region Spondylosis without myelopathy or radiculopathy, lumbar region Surgical History History of surgery LESI #1 L2-3 w/sed 03/08/2020 Family History (Updated 11/29/20 @ 17:34 by Armani Pfeiffer MD) Father Esophageal cancer MEDS/ALLERGIES Home Medications and Allergies Home Medications Medication Instructions Recorded Confirmed Type aspirin [Ecotrin] 81 mg PO DAILY 02/09/15 11/29/20 History gabapentin 600 mg PO HS 02/09/15 11/29/20 History metformin 1,000 mg PO BIDCC 02/09/15 11/29/20 History simvastatin 10 mg PO HS 02/09/15 11/29/20 History docusate sodium [Stool Softener] 100 mg PO BID 10/01/15 11/29/20 History insulin aspart U-100 [Novolog] See Protocol SQ AC 10/01/15 11/29/20 History insulin glargine [Lantus] 40 unit SQ HS 10/01/15 11/29/20 History lidocaine See Rx Instructions .ROUTE 10/01/15 11/29/20 History .COMPLEX PRN tamsulosin 0.4 mg PO DAILY 10/01/15 11/29/20 History ergocalciferol (vitamin D2) See Rx Instructions .ROUTE .COMPLEX 10/09/15 11/29/20 History [Vitamin D2] duloxetine 60 mg capsule,delayed 30 mg PO QDAY 01/19/20 11/28/20 History release sprinkle naloxone 4 mg/actuation nasal spray 4 mg INTRANASAL Q2M #2 each 08/16/20 11/28/20 Rx morphine 100 mg tablet,extended 100 mg PO BID #60 tab MDD 2 11/20/20 11/29/20 Rx release morphine 30 mg immediate release 30 mg PO Q6H PRN #60 tab 11/20/20 11/29/20 Rx tablet dulaglutide 1.5 mg SUBCUT WEEKLY 11/29/20 11/29/20 History lisinopril 40 mg PO QDAY 11/29/20 11/29/20 History nystatin 15 unit PO TID 11/29/20 11/29/20 History omeprazole 20 mg PO QDAY 11/29/20 11/29/20 History polyethylene glycol 3350 [Miralax] 17 g PO QDAY 11/29/20 11/29/20 History trazodone 25 mg PO QHS PRN 11/29/20 11/29/20 History Allergies Allergy/AdvReac Type Severity Reaction Status Date / Time No Known Drug Allergies Allergy Verified 11/28/20 17:07 Physical Examination Vital Signs Vital signs: Afebrile. Temp Pulse Resp BP Pulse Ox 98.8 F 65 14 124/62 96 11/29/20 16:01 11/29/20 17:14 11/29/20 17:14 11/29/20 16:01 11/29/20 17:14 Additional Exam Additional exam: General: He is laying on his back in bed. Eyes closed. Appea rs uncomfortable. HEENT: No facial swelling or redness. Mouth is moist. Neck is supple full. Lungs: Clear bilaterally. Heart: Regular rate and rhythm without murmur. Abdomen: Obese soft mild tenderness in the left upper quadrant. No rebound tenderness bowel sounds positive. Extremities: No knee effusions. No lower extremity edema. He did move feet to command. Skin without rash. Right peripheral line in place. Results Laboratory Findings CBC and BMP: 11/29/20 05:15 11/29/20 05:15 Abnormal lab findings: Abnormal Labs 11/28/20 11/28/20 11/28/20 18:12 18:12 22:36 RBC 3.48 L Hgb 10.6 L Hct 31.3 L Lymph % (Auto) Lymph # (Auto) 0.99 L ESR 93 H Creatinine 0.5 L Glucose 129 H Magnesium GGT Alkaline Phosphatase 120 H C-Reactive Protein 3.60 H Albumin 3.0 L Globulin 5.1 H Albumin/Globulin Ratio 0.6 L Procalcitonin 0.18 H 11/29/20 11/29/20 05:15 05:15 RBC 3.53 L Hgb 10.7 L Hct 31.9 L Lymph % (Auto) 14.9 L Lymph # (Auto) 0.93 L ESR Creatinine 0.5 L Glucose Magnesium 1.5 L GGT 143 H Alkaline Phosphatase C-Reactive Protein 3.70 H Albumin 2.9 L Globulin 4.8 H Albumin/Globulin Ratio 0.6 L Procalcitonin Sed rate 93 on November 28. Creatinine 0.5. A/P Assessment and plan (1) Discitis of thoracic region: Status: Acute Comment: Flex is a 70-year-old obese diabetic with chronic back pain. He is currently hospital day 2 on IV vancomycin plus Rocephin. T9/T10 disc space was aspirated by radiology today. Cultures and PCR sent. I agree with continued Vanco and Rocephin at this time. It will be important to follow- up on culture and PCR results. Patient was on antibiotic therapy before sample taken. I have reviewed with Dr. Casper. I am expecting 8 weeks of IV therapy. Place PICC line tomorrow. I have reviewed with nursing staff. (2) Back pain: Status: Acute Comment: Acute back pain with worsening over the past 3 weeks. (3) Abdominal pain: Status: Acute Comment: Gastritis on upper endoscopy yesterday. Location is left upper quadrant. Patient has bilateral kidney stones on CT scan also. (4) Chronic pain: Status: Chronic Comment: Previous spinal cord stimulator currently nonfunctional. (5) Diabetes mellitus: Status: Acute Comment: Chronic stable. comorbid illness. Recommendations: It will be important to follow-up on culture and PCR results. If culture and PCR results are negative, current regimen will continue for 8 weeks. May be able to tailor therapy if organism identified. Check weekly labs to include CBC CMP sed rate CRP and Vanco trough. I have discussed with he and his transition to senior living facility. Thank you very much. Time Spent With Patient Time: Total time spent is greater than 50% in coordination of care (as documented) at patient's floor/unit and/or counseling patient:
--- NOTE | 2020-11-29 18:46 | Cat Scan Report ---
CLINICAL INFORMATION: T9-10 disc aspiration for discitis COMPARISON: None. TECHNIQUE: Preprocedure examinations were reviewed: Sagittal reformatted images of the lower thoracic and lumbar spine were obtained from abdomen and pelvic CT performed on 09/19/2020 and 11/27/2020 at an outside hospital. On the first study, the T9-10 disc shows only mild degeneration. On the study over two months later, classic T9-10 discitis had developed featuring accelerated loss in disc height, endplate irregularity with osteolysis and paraspinous inflammation. The procedure and risks including stability of bleeding and infection were explained the patient. He understood and wished to proceed. He was medicated prior to, and during, the procedure with Versed and fentanyl. Please see medication sheet for dosages. Blood pressure and pulse oximeter monitor and she maintained consciousness during the procedure. Total sedation time: 35 minutes. With the patient in prone position, the T9-10 disc space was first CT localized. The skin in the right paraspinous soft tissues was marked, prepped and, using a 25-gauge spinal needle, locally anesthesia was accomplished with 1% lidocaine to the level of the disc. A 17-gauge Temno guide needle was then advanced under CT guidance into the disc center. Approximately 3 cc of sanguinopurulent fluid was aspirated and sent for culture. 2 to 3 cc of normal saline were then injected into the disc space to decrease viscosity: this yielded an additional 5 to 6 cc of fluid. Two core samples were then obtained in the inflamed soft tissue with a 18-gauge Temno core needle. The samples were sent in formalin to pathology. Needle was removed. Postprocedure scanning shows no complication. Patient tolerated procedure well. IMPRESSION: Successful CT-guided percutaneous aspiration and core biopsy of T9-10 discitis. No complication. Gram stain, culture, sensitivity and histology pending. Interpreted and Authenticated by: Everett Awad 11/29/20
[2020-11-29] MEDS: CYCLOBENZAPRINE 10 MG TABLET PO PRN (20:44)
[2020-11-29] MEDS: SENNOSIDES/DOCUSATE SODIUM 1 TAB TABLET PO SCH (20:44)
[2020-11-29] MEDS: GABAPENTIN 300 MG CAPSULE PO SCH (20:44)
[2020-11-29] MEDS: traZODone HCL 50 MG TABLET PO PRN (20:44)
[2020-11-29] MEDS: SIMVASTATIN 10 MG TABLET PO SCH (20:45)
[2020-11-29] MEDS: INSULIN GLARGINE, HUMAN 1 UNIT/0.01 ML SQ SCH (20:58)
[2020-11-29] MEDS: 0.9 % SODIUM CHLORIDE 1,000 ML IV SCH (22:21)
[2020-11-30] MEDS: 0.9 % SODIUM CHLORIDE 1,000 ML IV SCH ×2 (00:42→18:44)
[2020-11-30] MEDS: HYDROmorphone 0.5 MG/0.5 ML SYRINGE IV PRN ×5 (03:03→21:33)
[2020-11-30] MEDS: 0.9 % SODIUM CHLORIDE 10 ML SYRINGE IV SCH ×4 (05:29→21:38)
[2020-11-30] MEDS: morphine 15 MG TABLET PO PRN ×2 (05:42→17:04)
[2020-11-30] MEDS: SUCRALFATE 1 GM/10 ML ORAL.SUSP PO SCH ×3 (07:42→17:04)
[2020-11-30] MEDS: HEPARIN 5,000 UNIT/ML VIAL SQ SCH ×2 (07:42→21:33)
[2020-11-30] MEDS: DULoxetine 30 MG CAPSULE PO SCH (07:42)
[2020-11-30] MEDS: TAMSULOSIN 0.4 MG CAPSULE PO SCH (07:43)
[2020-11-30] MEDS: MULTIVIT,THER IRON,CA,FA & MIN 1 TABLET PO SCH (07:43)
[2020-11-30] MEDS: LISINOPRIL 20 MG TABLET PO SCH (07:43)
[2020-11-30] MEDS: PANTOPRAZOLE 40 MG TABLET PO SCH ×2 (07:43→17:03)
[2020-11-30] MEDS: morphine 30 MG TAB.SR.12H PO SCH ×2 (07:43→21:36)
[2020-11-30] MEDS: ASPIRIN 81 MG TAB.CHEW PO SCH (07:43)
[2020-11-30] MEDS: DOCUSATE SODIUM 100 MG CAPSULE PO SCH ×2 (07:43→21:35)
[2020-11-30] MEDS: sitaGLIPtin 100 MG TABLET PO SCH (07:43)
[2020-11-30] MEDS: INSULIN LISPRO 1 UNIT/0.01 ML UNIT SQ SCH ×4 (07:46→21:48)
[2020-11-30 07:57] LABS: Basophils # (Auto) 0.03 K/mcL (0.00-0.20); Basophils % (Auto) 0.5 % (0.0-2.0); Eosinophils % (Auto) 1.8 % (0.0-7.0); Hematocrit 30.6 % (41.0-55.0); Hemoglobin 10.4 g/dL (13.5-16.5); Lymphocytes # (Auto) 0.89 K/mcL (1.50-4.80); Lymphocytes % (Auto) 15.6 % (15.0-49.0); Mean Cell Volume 89.5 fL (80.0-100.0); Mean Platelet Volume 8.7 fL (7.4-10.4); Monocytes # (Auto) 0.44 K/mcL (0.10-0.90); Monocytes % (Auto) 7.7 % (1.0-12.0); Neutrophils % (Auto) 74.4 % (38.0-78.0); Platelet Count 161 K/mcL (140-440); RBC 3.42 M/mcL (4.50-5.90); Red Cell Distribution Width 13.4 % (11.5-14.5); WBC 5.7 K/mcL (4.5-11.0)
[2020-11-30] MEDS: cefTRIAXone 2 GM in DEXTROSE 5% IN WATER 50 ML IV SCH (08:28)
[2020-11-30] MEDS ORDERED: POLYETHYLENE GLYCOL 3350 17 GM PACKET PO SCH (09:00)
[2020-11-30] MEDS ORDERED: OMEPRAZOLE 20 MG CAPSULE PO SCH (09:00)
[2020-11-30 09:51] LABS: ALT/SGPT 10 U/L (<40); AST/SGOT 24 U/L (<40); Albumin 2.8 gm/dL (3.2-5.2); Albumin/Globulin Ratio 0.6 (1.0-2.3); Alkaline Phosphatase 112 U/L (39-117); Bilirubin,Direct 0.3 mg/dL (<0.3); Bilirubin,Total 0.5 mg/dL (0.1-1.0); Blood Urea Nitrogen 8 mg/dL (8-23); Calcium 8.4 mg/dL (8.6-10.4); Carbon Dioxide 24 mmol/L (22-30); Chloride 99 mmol/L (96-108); Globulin 4.8 gm/dL (2.2-3.7); Glomerular Filtration Rate 110; Glucose 95 mg/dL (70-105); Lactate Dehydrogenase 165 U/L (135-225); Phosphorous 3.1 mg/dL (2.5-4.5); Triglycerides 118 mg/dL (<150); Uric Acid 3.5 mg/dL (2.5-8.0)
[2020-11-30] MEDS ORDERED: 0.9 % SODIUM CHLORIDE 10 ML SYRINGE IV PRN (10:22)
[2020-11-30] MEDS: VANCOMYCIN 2,000 MG in 0.9 % SODIUM CHLORIDE 500 ML IV SCH ×2 (11:07→21:39)
[2020-11-30] MEDS: VANCOMYCIN 1,500 MG in 0.9 % SODIUM CHLORIDE 500 ML IV SCH (11:14)
--- NOTE | 2020-11-30 14:02 | XRay Report ---
CLINICAL INFORMATION: PICC PLACEMENT COMPARISON: 04/20/2015 FINDINGS: Left PICC line tip overlies the SVC right is about the junction. The heart is mildly enlarged. Mediastinum shows mild widening. Pulmonary vessels are unremarkable. Lungs are clear. No effusions. IMPRESSION: PICC line tip overlying the brachiocephalic SVC junction. Mild cardiomegaly Interpreted and Authenticated by: Everett Awad 11/30/20
[2020-11-30] MEDS: traZODone HCL 50 MG TABLET PO PRN (21:34)
[2020-11-30] MEDS: SENNOSIDES/DOCUSATE SODIUM 1 TAB TABLET PO SCH (21:34)
[2020-11-30] MEDS: MELATONIN 3 MG TABLET PO PRN (21:34)
[2020-11-30] MEDS: SIMVASTATIN 10 MG TABLET PO SCH (21:34)
[2020-11-30] MEDS: CYCLOBENZAPRINE 10 MG TABLET PO PRN (21:34)
[2020-11-30] MEDS: GABAPENTIN 300 MG CAPSULE PO SCH (21:35)
[2020-11-30] MEDS: INSULIN GLARGINE, HUMAN 1 UNIT/0.01 ML SQ SCH (21:49)
[2020-11-30] MEDS ORDERED: SIMETHICONE 80 MG TAB.CHEW CHEWED PRN (22:09)
[2020-12-01] MEDS: 0.9 % SODIUM CHLORIDE 10 ML SYRINGE IV SCH ×5 (06:06→21:49)
[2020-12-01] MEDS: 0.9 % SODIUM CHLORIDE 1,000 ML IV SCH (06:09)
[2020-12-01 06:42] LABS: Basophils # (Auto) 0.04 K/mcL (0.00-0.20); Basophils % (Auto) 0.7 % (0.0-2.0); Eosinophils # (Auto) 0.09 K/mcL (0.00-0.70); Eosinophils % (Auto) 1.6 % (0.0-7.0); Hematocrit 31.5 % (41.0-55.0); Hemoglobin 10.7 g/dL (13.5-16.5); Lymphocytes # (Auto) 1.02 K/mcL (1.50-4.80); Lymphocytes % (Auto) 17.8 % (15.0-49.0); Mean Cell Volume 89.5 fL (80.0-100.0); Mean Platelet Volume 8.6 fL (7.4-10.4); Monocytes # (Auto) 0.56 K/mcL (0.10-0.90); Monocytes % (Auto) 9.8 % (1.0-12.0); Neutrophils % (Auto) 70.1 % (38.0-78.0); Platelet Count 165 K/mcL (140-440); RBC 3.52 M/mcL (4.50-5.90); Red Cell Distribution Width 13.5 % (11.5-14.5); WBC 5.7 K/mcL (4.5-11.0)
[2020-12-01 07:17] LABS: ALT/SGPT 11 U/L (<40); AST/SGOT 26 U/L (<40); Albumin 2.6 gm/dL (3.2-5.2); Albumin/Globulin Ratio 0.6 (1.0-2.3); Alkaline Phosphatase 109 U/L (39-117); Bilirubin,Direct 0.2 mg/dL (<0.3); Bilirubin,Total 0.5 mg/dL (0.1-1.0); Blood Urea Nitrogen 9 mg/dL (8-23); Calcium 8.3 mg/dL (8.6-10.4); Carbon Dioxide 25 mmol/L (22-30); Chloride 102 mmol/L (96-108); Globulin 4.5 gm/dL (2.2-3.7); Glomerular Filtration Rate 110; Glucose 105 mg/dL (70-105); Lactate Dehydrogenase 179 U/L (135-225); Phosphorous 3.5 mg/dL (2.5-4.5); Triglycerides 101 mg/dL (<150); Uric Acid 3.6 mg/dL (2.5-8.0)
[2020-12-01] MEDS: cefTRIAXone 2 GM in DEXTROSE 5% IN WATER 50 ML IV SCH (07:18)
[2020-12-01] MEDS: ASPIRIN 81 MG TAB.CHEW PO SCH (07:19)
[2020-12-01] MEDS: morphine 30 MG TAB.SR.12H PO SCH ×2 (07:19→21:00)
[2020-12-01] MEDS: sitaGLIPtin 100 MG TABLET PO SCH (07:19)
[2020-12-01] MEDS: CYCLOBENZAPRINE 10 MG TABLET PO PRN (07:19)
[2020-12-01] MEDS: DULoxetine 30 MG CAPSULE PO SCH (07:19)
[2020-12-01] MEDS: HYDROmorphone 0.5 MG/0.5 ML SYRINGE IV PRN ×2 (07:20→16:51)
[2020-12-01] MEDS: MULTIVIT,THER IRON,CA,FA & MIN 1 TABLET PO SCH (07:20)
[2020-12-01] MEDS: LISINOPRIL 20 MG TABLET PO SCH (07:20)
[2020-12-01] MEDS: PANTOPRAZOLE 40 MG TABLET PO SCH ×2 (07:20→16:50)
[2020-12-01] MEDS: TAMSULOSIN 0.4 MG CAPSULE PO SCH (07:20)
[2020-12-01] MEDS: HEPARIN 5,000 UNIT/ML VIAL SQ SCH ×2 (07:20→20:53)
[2020-12-01] MEDS: DOCUSATE SODIUM 100 MG CAPSULE PO SCH ×2 (07:22→20:57)
[2020-12-01] MEDS: INSULIN LISPRO 1 UNIT/0.01 ML UNIT SQ SCH ×4 (07:22→20:54)
[2020-12-01] MEDS: SUCRALFATE 1 GM/10 ML ORAL.SUSP PO SCH ×3 (07:22→16:50)
[2020-12-01] MEDS: VANCOMYCIN 2,000 MG in 0.9 % SODIUM CHLORIDE 500 ML IV SCH ×2 (09:28→21:06)
[2020-12-01] MEDS: MAGNESIUM SULFATE 2 GM/50 ML BAG IV PRN (09:28)
--- NOTE | 2020-12-01 11:22 | Internal Med Progress Note ---
SUBJECTIVE Subjective Patient information: Note initiated : 11/30/20 at 10:29 am Service Date, if different from initiated Date: [] Patient: Flex Chavez 70 y/o M admitted on 11/28/20 for abdominal pain. Chief Complaint: [] Interval history: Mr. Keeley Mo is a 70 year old M morbidly obese with a history of chronic pain on 300 mg morphine a day/DM type II/HTN/anxiety/(who presents to the ER with increasing weakness/abdominal pain. Patient has had the symptoms for a while and underwent EGD as an Luis today by Dr. Lovelace that revealed gastritis. However he was advised to go to the ER because symptoms were out of proportion to the findings of endoscopy. Notably patient has been progressively getting weaker over the last month since he was admitted at [place] on October 25 this year. He has noted gradual decline in function ality/associate loss of appetite/lower back pain/malaise/drenching sweats and fever. Night before last he was evaluated at [facility] with similar symptoms. CT scan revealed T9-T10 suspected discitis/vertebral osteomyelitis however he was discharged home after short treatment in ER During today's work-up at [facility] White count 5.4, ESR 93, sodium 135, creatinine 0.5, CRP 3.6, lipase 21.CT scan reviewed from [facility] for T9-T10 discitis/bilateral nonobstructive nephrolithiasis. Patient was started on antibiotics after cultures were drawn. Subsequently hospitalist service was consulted. At the time of my evaluation patient is alert but anxious. He is accompanied with his Alice. She was able to answer most the question and provide history as above. He denies loss of bladder function or stool or urine incontinence. Further denies lower extremity abnormal sensation/weakness/jerking movements. He denies joint pain, rash, headache, photophobia but endorses to generalized malaise weakness fatigue and persistent abdominal pain associated nausea and vomiting. 5/6-patient currently on Rocephin/vancomycin. Case discussed with urology. No clear benefit of CT myelogram. Radiologist recommends continuation of antibiotics as disc space is hard to access for aspiration to rule out infection and the fact that patient has been on antibiotics for over 10 days will likely do a steroid tap. Will consult infectious specialist while continuing vancomy latrell Rocephin per guidelines for management discitis. No evidence of lower extremity weakness/incontinence or cord compression. Complains of abdominal discomfort/burning sensation. Recent EGD gastritis noted. Started on sucralfate/Protonix. On oral narcotics for chronic pain 11/30-patient doing clinically better. Status post disc abscess aspiration under CT guidance. Sent for evaluation. ID on board. Continue vancomycin/Rocephin. Back pain at baseline requiring home dose morphine/Dilaudid. Complains of heartburn currently on PPI. Discussed treatment plan and goals of care with Alice. PICC line secured. Cultures negative so far. On diabetic diet. No overnight fever chills or additional concerns per nursing staff. Constitutional Vitals: Vital Signs Temp Pulse Resp BP Pulse Ox 97 F 70 24 H 151/102 87 L 12/01/20 08:02 12/01/20 10:08 12/01/20 10:08 12/01/20 10:02 12/01/20 10:08 Period Temp Pulse Resp BP Sys/Velazquez Pulse Ox Last 24 Hr 97 F-99.5 F 64-74 0-25 129-175/59-102 87-98 Intake and Output 11/30/20 12/01/20 12/01/20 21:59 05:59 13:59 Intake Total 1880 860 50 Output Total 450 1001 Balance 1430 860 -951 Weight 126.235 kg resting comfortably. Nonlabored breathing Minimal anxiety Minimal lymphedema Intake & Output: Intake & Output 11/30/20 12/01/20 12/01/20 21:59 05:59 13:59 Intake Total 1880 860 50 Output Total 450 1001 Balance 1430 860 -951 Weight 126.235 kg Intake: IV 1520 500 50 Sodium Chloride 0.9% 1,000 ml @ 1000 50 mls/hr IV .Q20H KATINA Rx#: [id number] Potassium Chloride 40 Meq In 520 Dextrose 5% in Water 500 ml @ 130 mls/hr IV UD PRN Rx#: [id number] Vancomycin 2,000 mg In Sodium 500 Chloride 0.9% 500 ml @ 250 mls/ hr IV Q12H KATINA Rx#:[id number] Rocephin 2 gm In Dextrose 5% in 50 Water 50 ml @ 100 mls/hr IV Q24H KATINA Rx#:[id number] Oral 360 360 Output: Void Amount 450 1000 # of times incontinent of urine 1 Other: Meal Dinner Breakfast Percent of Meal Consumed 75% 25% Feeding Ability Independent Urine Appearance Clear Clear Urine Color Dark Yellow Bright Yellow Urine Odor Normal # Voids 1 OBJ DATA Labs CBC & Chem 7: 12/01/20 05:23 12/01/20 05:23 Labs: Abnormal Lab Results 12/01/20 12/01/20 11/30/20 05:23 05:23 05:15 RBC 3.52 L Hgb 10.7 L Hct 31.5 L Lymph % (Auto) Lymph # (Auto) 1.02 L ESR Potassium 3.2 L Anion Gap 7.0 L Creatinine 0.5 L 0.5 L Glucose Calcium 8.3 L 8.4 L Magnesium Direct Bilirubin 0.3 H GGT 143 H 148 H Alkaline Phosphatase C-Reactive Protein Albumin 2.6 L 2.8 L Globulin 4.5 H 4.8 H Albumin/Globulin Ratio 0.6 L 0.6 L Procalcitonin 11/30/20 11/29/20 11/29/20 05:00 05:15 05:15 RBC 3.42 L 3.53 L Hgb 10.4 L 10.7 L Hct 30.6 L 31.9 L Lymph % (Auto) 14.9 L Lymph # (Auto) 0.89 L 0.93 L ESR Potassium Anion Gap Creatinine 0.5 L Glucose Calcium Magnesium 1.5 L Direct Bilirubin GGT 143 H Alkaline Phosphatase C-Reactive Protein 3.70 H Albumin 2.9 L Globulin 4.8 H Albumin/Globulin Ratio 0.6 L Procalcitonin 11/28/20 11/28/20 11/28/20 22:36 18:12 18:12 RBC 3.48 L Hgb 10.6 L Hct 31.3 L Lymph % (Auto) Lymph # (Auto) 0.99 L ESR 93 H Potassium Anion Gap Creatinine 0.5 L Glucose 129 H Calcium Magnesium Direct Bilirubin GGT Alkaline Phosphatase 120 H C-Reactive Protein 3.60 H Albumin 3.0 L Globulin 5.1 H Albumin/Globulin Ratio 0.6 L Procalcitonin 0.18 H Meds: Medications Acetaminophen (Acetaminophen 325 Mg Tablet) 650 mg PO Q4-6HP PRN; Protocol PRN Reason: Per Pain Protocol/Fever > 101 Aspirin (Aspirin 81 Mg Tab.Chew) 81 mg PO DAILY [facility] Last Admin: 12/01/20 07:19 Dose: 81 mg Documented by: Bisacodyl (Bisacodyl 10 Mg Supp.Rect) 10 mg [place] Q2-3DAYS PRN PRN Reason: Constipation Cyclobenzaprine HCl (Cyclobenzaprine 10 Mg Tablet) 10 mg PO TIDP PRN PRN Reason: Spasms Last Admin: 12/01/20 07:19 Dose: 10 mg Documented by: Dextrose (Dextrose 50% 50 Ml Vial) 0 ml IV UD PRN PRN Reason: Hypoglycemia Diagnostic Test (Pha) (Accu-Chek 1 Each Strip) 1 each FS ACHS [facility] Last Admin: 12/01/20 07:22 Dose: 1 each Documented by: Docusate Sodium (Docusate Sodium 100 Mg Capsule) 100 mg PO BID [facility] Last Admin: 12/01/20 07:22 Dose: 100 mg Documented by: Duloxetine HCl (Duloxetine 30 Mg Capsule) 60 mg PO QDAY [facility] Last Admin: 12/01/20 07:19 Dose: 60 mg Documented by: Ergocalciferol (Ergocalciferol (Vitamin D2) 50,000 Unit Capsule) 50,000 unit PO Q14D KATINA Gabapentin (Gabapentin 300 Mg Capsule) 600 mg PO HS [facility] Last Admin: 11/30/20 21:35 Dose: 600 mg Documented by: Glucose (Dextrose 31 Gm Oral.Susp) 15 gm PO PRN PRN PRN Reason: Hypoglycemia Heparin Sodium (Porcine) (Heparin 5,000 Unit/Ml Vial) 5,000 unit SQ Q12 [facility] Last Admin: 12/01/20 07:20 Dose: 5,000 unit Documented by: Heparin Sodium (Porcine) (Heparin Flush 10 Units/Ml 5 Ml Syringe) 2 ml IV Q12 [facility] Last Admin: 12/01/20 07:22 Dose: 2 ml Documented by: Hydromorphone HCl (Hydromorphone 0.5 Mg/0.5 Ml Syringe) 0.25 - 0.5 mg IV Q4HP PRN; Protocol PRN Reason: Per Pain Protocol Last Admin: 12/01/20 07:20 Dose: 0.5 mg Documented by: Potassium Chloride 40 meq/ (Dextrose) 520 mls @ 130 mls/hr IV UD PRN PRN Reason: K+ = or < 3.5 Last Infusion: 11/30/20 18:44 Dose: Infused Documented by: Acetaminophen (Ofirmev) 650 mg in 65 mls @ 130 mls/hr IV Q6HP PRN; Protocol PRN Reason: Per Pain Protocol/Fever > 101 Magnesium Sulfate (Magnesium Sulfate) 2 gm in 50 mls @ 50 mls/hr IV UD PRN PRN Reason: MG = or < 1.7 Last Admin: 12/01/20 09:28 Dose: 50 mls/hr Documented by: Ceftriaxone Sodium 2 gm/ (Dextrose) 50 mls @ 100 mls/hr IV Q24H [facility]; Protocol Last Infusion: 12/01/20 07:49 Dose: Infused Documented by: Vancomycin HCl 2,000 mg/ (Sodium Chloride) 500 mls @ 250 mls/hr IV Q12H [facility] Last Admin: 12/01/20 09:28 Dose: 250 mls/hr Documented by: Insulin Glargine (Insulin Glargine, Human 1 Unit/0.01 Ml) 14 unit SQ HS [facility] Last Admin: 11/30/20 21:49 Dose: 14 units Documented by: Insulin Human Lispro (Insulin Lispro 1 Unit/0.01 Ml Unit) 0 unit SQ ACHS [facility]; Protocol Last Admin: 12/01/20 07:22 Dose: Not Given Documented by: Iron Carb/Multivit/[place]/Folic Acid (Multivit,Ther Iron,Ca,Fa & Min 1 Tablet) 1 tab PO DAILY [facility] Last Admin: 12/01/20 07:20 Dose: 1 tab Documented by: Lidocaine (Lidocaine Patch) 1 patch TOPICAL Q24HP PRN PRN Reason: Pain Last Admin: 11/30/20 21:34 Dose: 1 patch Documented by: Lisinopril (Lisinopril 20 Mg Tablet) 20 mg PO DAILY [facility] Last Admin: 12/01/20 07:20 Dose: 20 mg Documented by: Melatonin (Melatonin 3 Mg Tablet) 3 mg PO HSP PRN PRN Reason: Insomnia Last Admin: 11/30/20 21:34 Dose: 3 mg Documented by: Morphine Sulfate (Morphine 15 Mg Tablet) 30 mg PO Q6HP PRN PRN Reason: breakthrough pain Last Admin: 11/30/20 17:04 Dose: 30 mg Documented by: Morphine Sulfate (Morphine 30 Mg Tab.Sr.12h) 90 mg PO BID [facility]; Protocol Last Admin: 12/01/20 07:19 Dose: 90 mg Documented by: Ondansetron HCl (Ondansetron 4 Mg Odt Tablet) 4 mg SL Q4-6HP PRN; Protocol PRN Reason: Nausea And Vomiting Ondansetron HCl (Ondansetron 4 Mg/2 Ml Vial) 4 mg IV Q4-6HP PRN; Protocol PRN Reason: Nausea And Vomiting Pantoprazole Sodium (Pantoprazole 40 Mg Tablet) 40 mg PO BIDAC [facility] Last Admin: 12/01/20 07:20 Dose: 40 mg Documented by: Polyethylene Glycol (Polyethylene Glycol 3350 17 Gm Packet) 17 gm PO DAILYP PRN PRN Reason: Constipation Senna/Docusate Sodium (Sennosides/Docusate Sodium 1 Tab Tablet) 1 tab PO [facility] Last Admin: 11/30/20 21:34 Dose: 1 tab Documented by: Simethicone (Simethicone 80 Mg Tab.Chew) 80 mg CHEWED QIDP PRN PRN Reason: Dyspepsia Last Admin: 11/30/20 22:48 Dose: 80 mg Documented by: Simvastatin (Simvastatin 10 Mg Tablet) 10 mg PO [facility] Last Admin: 11/30/20 21:34 Dose: 10 mg Documented by: Sitagliptin Phosphate (Sitagliptin 100 Mg Tablet) 100 mg PO DAILY [facility] Last Admin: 12/01/20 07:19 Dose: 100 mg Documented by: Sodium Chloride (0.9 % Sodium Chloride 10 Ml Syringe) 10 ml IV Q8 [facility] Last Admin: 12/01/20 06:06 Dose: 10 ml Documented by: Sodium Chloride (0.9 % Sodium Chloride 10 Ml Syringe) 10 ml IV UD PRN PRN Reason: FLUSH Sodium Chloride (0.9 % Sodium Chloride 10 Ml Syringe) 10 ml IV Q12 [facility] Last Admin: 12/01/20 07:23 Dose: 10 ml Documented by: Sucralfate (Sucralfate 1 Gm/10 Ml Oral.Susp) 1 gm PO TIDAC [facility] Last Admin: 12/01/20 07:22 Dose: 1 gm Documented by: Tamsulosin HCl (Tamsulosin 0.4 Mg Capsule) 0.4 mg PO DAILY [facility] Last Admin: 12/01/20 07:20 Dose: 0.4 mg Documented by: Trazodone HCl (Trazodone Hcl 50 Mg Tablet) 25 mg PO QHS PRN PRN Reason: Sleep Last Admin: 11/30/20 21:34 Dose: 25 mg Documented by: Vancomycin HCl (Vancomycin Per Pharmacy) 1 order IV UD [facility]; Protocol A/P Narrative A/P Narrative: * T9/T10 discitis-status post CT-guided disc aspiration. Await cultures and Gram stain/bacterial PCR. Continuing empiric Rocephin/vancomycin. ID on board. Suspect hematogenous seeding. Blood cultures pending. * DM type II continue basal prandial insulin/CC diet/reduction * History of hypertension continue enalapril * Esophagitis with gastritis as noted on EGD 11/28. Continue sucralfate/PPI * Anxiety disorder continue duloxetine * Chronic pain on morphine 100 mg twice daily/intermediate release 30 as needed * Hyperlipidemia on simvastatin * History of hypertension continue DAPHNE inhibitor * History neuropathy continue gabapentin * BPH continue tamsulosin * Full code Plan * Antibiotics per ID * Check echocardiogram * Pre-existing medical condition management on home medications as above * PT OT nutrition support * Discharge planning per case management Time Spent With Patient Time: Total time spent is greater than 50% in coordination of care (as documented) at patient's floor/unit and/or counseling patient: QUALITY VTE Deep Vein Thrombosis/Pulmonary Embolism Present on Admission: No
--- NOTE | 2020-12-01 11:26 | Internal Med Progress Note ---
SUBJECTIVE Subjective Patient information: Note initiated : 12/01/20 at 11:23 am Service Date, if different from initiated Date: [] Patient: Flex Chavez 70 y/o M admitted on 11/28/20 for abdominal pain. Chief Complaint: [] Interval history: Mr. Keeley Mo is a 70 year old M morbidly obese with a history of chronic pain on 300 mg morphine a day/DM type II/HTN/anxiety/(who presents to the ER with increasing weakness/abdominal pain. Patient has had the symptoms for a while and underwent EGD as an Luis today by Dr. Lovelace that revealed gastritis. However he was advised to go to the ER because symptoms were out of proportion to the findings of endoscopy. Notably patient has been progressively getting weaker over the last month since he was admitted at [place] on October 25 this year. He has noted gradual decline in function ality/associate loss of appetite/lower back pain/malaise/drenching sweats and fever. Night before last he was evaluated at [facility] with similar symptoms. CT scan revealed T9-T10 suspected discitis/vertebral osteomyelitis however he was discharged home after short treatment in ER During today's work-up at [facility] count 5.4, ESR 93, sodium 135, creatinine 0.5, CRP 3.6, lipase 21.CT scan reviewed from [facility] for T9-T10 discitis/bilateral nonobstructive nephrolithiasis. Patient was started on antibiotics after cultures were drawn. Subsequently hospitalist service was consulted. At the time of my evaluation patient is alert but anxious. He is accompanied with his Alice. She was able to answer most the question and provide history as above. He denies loss of bladder function or stool or urine incontinence. Further denies lower extremity abnormal sensation/weakness/jerking movements. He denies joint pain, rash, headache, photophobia but endorses to generalized malaise weakness fatigue and persistent abdominal pain associated nausea and vomiting. 5/6-patient currently on Rocephin/vancomycin. Case discussed with urology. No clear benefit of CT myelogram. Radiologist recommends continuation of antibiotics as disc space is hard to access for aspiration to rule out infection and the fact that patient has been on antibiotics for over 10 days will likely do a steroid tap. Will consult infectious specialist while continuing vancomy latrell Rocephin per guidelines for management discitis. No evidence of lower extremity weakness/incontinence or cord compression. Complains of abdominal discomfort/burning sensation. Recent EGD gastritis noted. Started on sucralfate/Protonix. On oral narcotics for chronic pain 11/30-patient doing clinically better. Status post disc abscess aspiration under CT guidance. Sent for evaluation. ID on board. Continue vancomycin/Rocephin. Back pain at baseline requiring home dose morphine/Dilaudid. Complains of heartburn currently on PPI. Discussed treatment plan and goals of care with Alice. PICC line secured. Cultures negative so far. On diabetic diet. No overnight fever chills or additional concerns per nursing staff. 12/01-patient doing well overnight. Complains of persistent back pain on opioids. GPC on disc aspirate cultures. No overnight fever chills. No additional con cerns per nursing staff. Stable labs and hemodynamics. Continue antibiotic coverage per ID Constitutional Vitals: Vital Signs Temp Pulse Resp BP Pulse Ox 97 F 70 24 H 151/102 87 L 12/01/20 08:02 12/01/20 10:08 12/01/20 10:08 12/01/20 10:02 12/01/20 10:08 Period Temp Pulse Resp BP Sys/Velazquez Pulse Ox Last 24 Hr 97 F-99.5 F 64-74 0-25 129-175/59-102 87-98 Intake and Output 11/30/20 12/01/20 12/01/20 21:59 05:59 13:59 Intake Total 1880 860 50 Output Total 450 1001 Balance 1430 860 -951 Weight 126.235 kg Alert oriented Nonlabored breathing PICC line placed Lower back pain but no evident erythema Intake & Output: Intake & Output 11/30/20 12/01/20 12/01/20 21:59 05:59 13:59 Intake Total 1880 860 50 Output Total 450 1001 Balance 1430 860 -951 Weight 126.235 kg Intake: IV 1520 500 50 Sodium Chloride 0.9% 1,000 ml @ 1000 50 mls/hr IV .Q20H [facility] Rx#: [id number] Potassium Chloride 40 Meq In 520 Dextrose 5% in Water 500 ml @ 130 mls/hr IV UD PRN Rx#: [id number] Vancomycin 2,000 mg In Sodium 500 Chloride 0.9% 500 ml @ 250 mls/ hr IV Q12H [facility] Rx#:[id number] Rocephin 2 gm In Dextrose 5% in 50 Water 50 ml @ 100 mls/hr IV Q24H [facility] Rx#:[id number] Oral 360 360 Output: Void Amount 450 1000 # of times incontinent of urine 1 Other: Meal Dinner Breakfast Percent of Meal Consumed 75% 25% Feeding Ability Independent Urine Appearance Clear Clear Urine Color Dark Yellow Bright Yellow Urine Odor Normal # Voids 1 OBJ DATA Labs CBC & Chem 7: 12/01/20 05:23 12/01/20 05:23 Labs: Abnormal Lab Results 12/01/20 12/01/20 11/30/20 05:23 05:23 05:15 RBC 3.52 L Hgb 10.7 L Hct 31.5 L Lymph % (Auto) Lymph # (Auto) 1.02 L ESR Potassium 3.2 L Anion Gap 7.0 L Creatinine 0.5 L 0.5 L Glucose Calcium 8.3 L 8.4 L Magnesium Direct Bilirubin 0.3 H GGT 143 H 148 H Alkaline Phosphatase C-Reactive Protein Albumin 2.6 L 2.8 L Globulin 4.5 H 4.8 H Albumin/Globulin Ratio 0.6 L 0.6 L Procalcitonin 11/30/20 11/29/20 11/29/20 05:00 05:15 05:15 RBC 3.42 L 3.53 L Hgb 10.4 L 10.7 L Hct 30.6 L 31.9 L Lymph % (Auto) 14.9 L Lymph # (Auto) 0.89 L 0.93 L ESR Potassium Anion Gap Creatinine 0.5 L Glucose Calcium Magnesium 1.5 L Direct Bilirubin GGT 143 H Alkaline Phosphatase C-Reactive Protein 3.70 H Albumin 2.9 L Globulin 4.8 H Albumin/Globulin Ratio 0.6 L Procalcitonin 11/28/20 11/28/20 11/28/20 22:36 18:12 18:12 RBC 3.48 L Hgb 10.6 L Hct 31.3 L Lymph % (Auto) Lymph # (Auto) 0.99 L ESR 93 H Potassium Anion Gap Creatinine 0.5 L Glucose 129 H Calcium Magnesium Direct Bilirubin GGT Alkaline Phosphatase 120 H C-Reactive Protein 3.60 H Albumin 3.0 L Globulin 5.1 H Albumin/Globulin Ratio 0.6 L Procalcitonin 0.18 H Meds: Medications Acetaminophen (Acetaminophen 325 Mg Tablet) 650 mg PO Q4-6HP PRN; Protocol PRN Reason: Per Pain Protocol/Fever > 101 Aspirin (Aspirin 81 Mg Tab.Chew) 81 mg PO DAILY [facility] Last Admin: 12/01/20 07:19 Dose: 81 mg Documented by: Bisacodyl (Bisacodyl 10 Mg Supp.Rect) 10 mg NV Q2-3DAYS PRN PRN Reason: Constipation Cyclobenzaprine HCl (Cyclobenzaprine 10 Mg Tablet) 10 mg PO TIDP PRN PRN Reason: Spasms Last Admin: 12/01/20 07:19 Dose: 10 mg Documented by: Dextrose (Dextrose 50% 50 Ml Vial) 0 ml IV UD PRN PRN Reason: Hypoglycemia Diagnostic Test (Pha) (Accu-Chek 1 Each Strip) 1 each FS ACHS [facility] Last Admin: 12/01/20 07:22 Dose: 1 each Documented by: Docusate Sodium (Docusate Sodium 100 Mg Capsule) 100 mg PO BID [facility] Last Admin: 12/01/20 07:22 Dose: 100 mg Documented by: Duloxetine HCl (Duloxetine 30 Mg Capsule) 60 mg PO QDAY [facility] Last Admin: 12/01/20 07:19 Dose: 60 mg Documented by: Ergocalciferol (Ergocalciferol (Vitamin D2) 50,000 Unit Capsule) 50,000 unit PO Q14D [facility] Gabapentin (Gabapentin 300 Mg Capsule) 600 mg PO HS [facility] Last Admin: 11/30/20 21:35 Dose: 600 mg Documented by: Glucose (Dextrose 31 Gm Oral.Susp) 15 gm PO PRN PRN PRN Reason: Hypoglycemia Heparin Sodium (Porcine) (Heparin 5,000 Unit/Ml Vial) 5,000 unit SQ Q12 [facility] Last Admin: 12/01/20 07:20 Dose: 5,000 unit Documented by: Heparin Sodium (Porcine) (Heparin Flush 10 Units/Ml 5 Ml Syringe) 2 ml IV Q12 S Last Admin: 12/01/20 07:22 Dose: 2 ml Documented by: Hydromorphone HCl (Hydromorphone 0.5 Mg/0.5 Ml Syringe) 0.25 - 0.5 mg IV Q4HP PRN; Protocol PRN Reason: Per Pain Protocol Last Admin: 12/01/20 07:20 Dose: 0.5 mg Documented by: Potassium Chloride 40 meq/ (Dextrose) 520 mls @ 130 mls/hr IV UD PRN PRN Reason: K+ = or < 3.5 Last Infusion: 11/30/20 18:44 Dose: Infused Documented by: Acetaminophen (Ofirmev) 650 mg in 65 mls @ 130 mls/hr IV Q6HP PRN; Protocol PRN Reason: Per Pain Protocol/Fever > 101 Magnesium Sulfate (Magnesium Sulfate) 2 gm in 50 mls @ 50 mls/hr IV UD PRN PRN Reason: MG = or < 1.7 Last Admin: 12/01/20 09:28 Dose: 50 mls/hr Documented by: Ceftriaxone Sodium 2 gm/ (Dextrose) 50 mls @ 100 mls/hr IV Q24H [facility]; Protocol Last Infusion: 12/01/20 07:49 Dose: Infused Documented by: Vancomycin HCl 2,000 mg/ (Sodium Chloride) 500 mls @ 250 mls/hr IV Q12H [facility] Last Admin: 12/01/20 09:28 Dose: 250 mls/hr Documented by: Insulin Glargine (Insulin Glargine, Human 1 Unit/0.01 Ml) 14 unit SQ HS [facility] Last Admin: 11/30/20 21:49 Dose: 14 units Documented by: Insulin Human Lispro (Insulin Lispro 1 Unit/0.01 Ml Unit) 0 unit SQ [facility]; Protocol Last Admin: 12/01/20 07:22 Dose: Not Given Documented by: Iron Carb/Multivit/Cowles/Folic Acid (Multivit,Ther Iron,Ca,Fa & Min 1 Tablet) 1 tab PO DAILY [facility] Last Admin: 12/01/20 07:20 Dose: 1 tab Documented by: Lidocaine (Lidocaine Patch) 1 patch TOPICAL Q24HP PRN PRN Reason: Pain Last Admin: 11/30/20 21:34 Dose: 1 patch Documented by: Lisinopril (Lisinopril 20 Mg Tablet) 20 mg PO DAILY [facility] Last Admin: 12/01/20 07:20 Dose: 20 mg Documented by: Melatonin (Melatonin 3 Mg Tablet) 3 mg PO HSP PRN PRN Reason: Insomnia Last Admin: 11/30/20 21:34 Dose: 3 mg Documented by: Morphine Sulfate (Morphine 15 Mg Tablet) 30 mg PO Q6HP PRN PRN Reason: breakthrough pain Last Admin: 11/30/20 17:04 Dose: 30 mg Documented by: Morphine Sulfate (Morphine 30 Mg Tab.Sr.12h) 90 mg PO BID [facility]; Protocol Last Admin: 12/01/20 07:19 Dose: 90 mg Documented by: Ondansetron HCl (Ondansetron 4 Mg Odt Tablet) 4 mg SL Q4-6HP PRN; Protocol PRN Reason: Nausea And Vomiting Ondansetron HCl (Ondansetron 4 Mg/2 Ml Vial) 4 mg IV Q4-6HP PRN; Protocol PRN Reason: Nausea And Vomiting Pantoprazole Sodium (Pantoprazole 40 Mg Tablet) 40 mg PO BIDAC [facility] Last Admin: 12/01/20 07:20 Dose: 40 mg Documented by: Polyethylene Glycol (Polyethylene Glycol 3350 17 Gm Packet) 17 gm PO DAILYP PRN PRN Reason: Constipation Senna/Docusate Sodium (Sennosides/Docusate Sodium 1 Tab Tablet) 1 tab PO [facility] Last Admin: 11/30/20 21:34 Dose: 1 tab Documented by: Simethicone (Simethicone 80 Mg Tab.Chew) 80 mg CHEWED QIDP PRN PRN Reason: Dyspepsia Last Admin: 11/30/20 22:48 Dose: 80 mg Documented by: Simvastatin (Simvastatin 10 Mg Tablet) 10 mg PO [facility] Last Admin: 11/30/20 21:34 Dose: 10 mg Documented by: Sitagliptin Phosphate (Sitagliptin 100 Mg Tablet) 100 mg PO DAILY [facility] Last Admin: 12/01/20 07:19 Dose: 100 mg Documented by: Sodium Chloride (0.9 % Sodium Chloride 10 Ml Syringe) 10 ml IV Q8 [facility] Last Admin: 12/01/20 06:06 Dose: 10 ml Documented by: Sodium Chloride (0.9 % Sodium Chloride 10 Ml Syringe) 10 ml IV UD PRN PRN Reason: FLUSH Sodium Chloride (0.9 % Sodium Chloride 10 Ml Syringe) 10 ml IV Q12 [facility] Last Admin: 12/01/20 07:23 Dose: 10 ml Documented by: Sucralfate (Sucralfate 1 Gm/10 Ml Oral.Susp) 1 gm PO TIDAC [facility] Last Admin: 12/01/20 07:22 Dose: 1 gm Documented by: Tamsulosin HCl (Tamsulosin 0.4 Mg Capsule) 0.4 mg PO DAILY [facility] Last Admin: 12/01/20 07:20 Dose: 0.4 mg Documented by: Trazodone HCl (Trazodone Hcl 50 Mg Tablet) 25 mg PO QHS PRN PRN Reason: Sleep Last Admin: 11/30/20 21:34 Dose: 25 mg Documented by: Vancomycin HCl (Vancomycin Per Pharmacy) 1 order IV UD [facility]; Protocol A/P Narrative A/P Narrative: * T9/T10 discitis/abscess with osteomyelitis-status post CT-guided disc aspiration. GPC on cultures. Continuing empiric Rocephin/vancomycin. ID on board. * DM type II continue basal prandial insulin/CC diet * History of hypertension continue home dose enalapril * Esophagitis with gastritis as noted on EGD 11/28. Continue sucralfate/PPI * Anxiety disorder continue duloxetine * Chronic pain on morphine 100 mg twice daily/intermediate release 30 as needed * Hyperlipidemia on simvastatin * History of hypertension continue DAPHNE inhibitor * History neuropathy continue gabapentin * BPH continue tamsulosin * Full code Plan * Antibiotics per ID * Await echocardiogram * Pre-existing medical condition management on home medications as above * PT OT nutrition support * Discharge planning per case management Time Spent With Patient Time: Total time spent is greater than 50% in coordination of care (as documented) at patient's floor/unit and/or counseling patient: QUALITY VTE Deep Vein Thrombosis/Pulmonary Embolism Present on Admission: No
[2020-12-01] MEDS: INSULIN GLARGINE, HUMAN 1 UNIT/0.01 ML SQ SCH (20:54)
[2020-12-01] MEDS: SENNOSIDES/DOCUSATE SODIUM 1 TAB TABLET PO SCH (20:57)
[2020-12-01] MEDS: GABAPENTIN 300 MG CAPSULE PO SCH (20:58)
[2020-12-01] MEDS: SIMVASTATIN 10 MG TABLET PO SCH (20:58)
[2020-12-01] MEDS: MELATONIN 3 MG TABLET PO PRN (21:12)
[2020-12-01] MEDS: traZODone HCL 50 MG TABLET PO PRN (21:13)
[2020-12-02] MEDS: 0.9 % SODIUM CHLORIDE 10 ML SYRINGE IV SCH ×4 (05:46→21:09)
[2020-12-02 06:09] LABS: Basophils # (Auto) 0.03 K/mcL (0.00-0.20); Basophils % (Auto) 0.6 % (0.0-2.0); Eosinophils # (Auto) 0.14 K/mcL (0.00-0.70); Eosinophils % (Auto) 2.7 % (0.0-7.0); Hematocrit 29.4 % (41.0-55.0); Lymphocytes # (Auto) 1.17 K/mcL (1.50-4.80); Lymphocytes % (Auto) 22.9 % (15.0-49.0); Mean Cell Volume 90.5 fL (80.0-100.0); Mean Platelet Volume 8.4 fL (7.4-10.4); Monocytes # (Auto) 0.53 K/mcL (0.10-0.90); Monocytes % (Auto) 10.4 % (1.0-12.0); Neutrophils % (Auto) 63.4 % (38.0-78.0); Platelet Count 145 K/mcL (140-440); RBC 3.25 M/mcL (4.50-5.90); Red Cell Distribution Width 13.6 % (11.5-14.5); WBC 5.1 K/mcL (4.5-11.0)
[2020-12-02 06:29] LABS: ALT/SGPT 13 U/L (<40); AST/SGOT 27 U/L (<40); Albumin 2.3 gm/dL (3.2-5.2); Albumin/Globulin Ratio 0.5 (1.0-2.3); Alkaline Phosphatase 107 U/L (39-117); Bilirubin,Direct < 0.2 mg/dL (0-0.3); Bilirubin,Total 0.4 mg/dL (0.1-1.0); Blood Urea Nitrogen 9 mg/dL (8-23); Calcium 8.2 mg/dL (8.6-10.4); Carbon Dioxide 27 mmol/L (22-30); Chloride 101 mmol/L (96-108); Globulin 4.4 gm/dL (2.2-3.7); Glomerular Filtration Rate 110; Glucose 101 mg/dL (70-105); Lactate Dehydrogenase 152 U/L (135-225); Phosphorous 3.5 mg/dL (2.5-4.5); Triglycerides 98 mg/dL (<150); Uric Acid 3.5 mg/dL (2.5-8.0)
[2020-12-02] MEDS: morphine 30 MG TAB.SR.12H PO SCH ×2 (07:59→21:08)
[2020-12-02] MEDS: DULoxetine 30 MG CAPSULE PO SCH (08:00)
[2020-12-02] MEDS: ASPIRIN 81 MG TAB.CHEW PO SCH (08:00)
[2020-12-02] MEDS: TAMSULOSIN 0.4 MG CAPSULE PO SCH (08:00)
[2020-12-02] MEDS: sitaGLIPtin 100 MG TABLET PO SCH (08:00)
[2020-12-02] MEDS: HEPARIN 5,000 UNIT/ML VIAL SQ SCH ×2 (08:00→21:06)
[2020-12-02] MEDS: LISINOPRIL 20 MG TABLET PO SCH (08:00)
[2020-12-02] MEDS: PANTOPRAZOLE 40 MG TABLET PO SCH ×2 (08:00→17:21)
[2020-12-02] MEDS: MULTIVIT,THER IRON,CA,FA & MIN 1 TABLET PO SCH (08:00)
[2020-12-02] MEDS: DOCUSATE SODIUM 100 MG CAPSULE PO SCH ×2 (08:00→21:09)
[2020-12-02] MEDS: SUCRALFATE 1 GM/10 ML ORAL.SUSP PO SCH ×3 (08:00→17:21)
[2020-12-02] MEDS: INSULIN LISPRO 1 UNIT/0.01 ML UNIT SQ SCH ×4 (08:01→21:06)
[2020-12-02] MEDS: cefTRIAXone 2 GM in DEXTROSE 5% IN WATER 50 ML IV SCH (09:19)
[2020-12-02] MEDS: VANCOMYCIN 2,000 MG in 0.9 % SODIUM CHLORIDE 500 ML IV SCH ×2 (09:19→21:05)
--- NOTE | 2020-12-02 11:23 | Internal Med Progress Note ---
SUBJECTIVE Subjective Patient information: Note initiated : 12/02/20 at 11:21 am Service Date, if different from initiated Date: [] Patient: Flex Chavez 70 y/o M admitted on 11/28/20 for abdominal pain. Chief Complaint: [] Interval history: Mr. Keeley Mo is a 70 year old M morbidly obese with a history of chronic pain on 300 mg morphine a day/DM type II/HTN/anxiety/(who presents to the ER with increasing weakness/abdominal pain. Patient has had the symptoms for a while and underwent EGD as an Luis today by Dr. Lovelace that revealed gastritis. However he was advised to go to the ER because symptoms were out of proportion to the findings of endoscopy. Notably patient has been progressively getting weaker over the last month since he was admitted at [facility] on October 25 this year. He has noted gradual decline in function ality/associate loss of appetite/lower back pain/malaise/drenching sweats and fever. Night before last he was evaluated at [facility] with similar symptoms. CT scan revealed T9-T10 suspected discitis/vertebral osteomyelitis however he was discharged home after short treatment in ER During today's work-up at [facility] White count 5.4, ESR 93, sodium 135, creatinine 0.5, CRP 3.6, lipase 21.CT scan reviewed from [facility] for T9-T10 discitis/bilateral nonobstructive nephrolithiasis. Patient was started on antibiotics after cultures were drawn. Subsequently hospitalist service was consulted. At the time of my evaluation patient is alert but anxious. He is accompanied with his Alice. She was able to answer most the question and provide history as above. He denies loss of bladder function or stool or urine incontinence. Further denies lower extremity abnormal sensation/weakness/jerking movements. He denies joint pain, rash, headache, photophobia but endorses to generalized malaise weakness fatigue and persistent abdominal pain associated nausea and vomiting. 5/6-patient currently on Rocephin/vancomycin. Case discussed with urology. No clear benefit of CT myelogram. Radiologist recommends continuation of antibiotics as disc space is hard to access for aspiration to rule out infection and the fact that patient has been on antibiotics for over 10 days will likely do a steroid tap. Will consult infectious specialist while continuing vancomy latrell Rocephin per guidelines for management discitis. No evidence of lower extremity weakness/incontinence or cord compression. Complains of abdominal discomfort/burning sensation. Recent EGD gastritis noted. Started on sucralfate/Protonix. On oral narcotics for chronic pain 11/30-patient doing clinically better. Status post disc abscess aspiration under CT guidance. Sent for evaluation. ID on board. Continue vancomycin/Rocephin. Back pain at baseline requiring home dose morphine/Dilaudid. Complains of heartburn currently on PPI. Discussed treatment plan and goals of care with Alice. PICC line secured. Cultures negative so far. On diabetic diet. No overnight fever chills or additional concerns per nursing staff. 12/01-patient doing well overnight. Complains of persistent back pain on opioids. GPC on disc aspirate cultures. No overnight fever chills. No additional con cerns per nursing staff. Stable labs and hemodynamics. Continue antibiotic coverage per ID 12/02-patient feeling better. Back pain improving. On antibiotic coverage. GPC on wound culture. Continue Rocephin vancomycin. No overnight events. Stable pre-existing medical condition. Denies fever chills. No family at bedside. Tolerating diet. Ongoing therapies. Constitutional Vitals: Vital Signs Temp Pulse Resp BP Pulse Ox 99.8 F H 72 18 146/71 95 12/02/20 08:02 12/02/20 10:02 12/02/20 10:02 12/02/20 10:02 12/02/20 10:02 Period Temp Pulse Resp BP Sys/Velazquez Pulse Ox Last 24 Hr 98.1 F-99.8 F 66-76 14-25 121-164/61-78 94-98 Intake and Output 12/01/20 12/02/20 12/02/20 21:59 05:59 13:59 Intake Total 761 311 5479 Output Total 925 750 625 Balance -805 -10 665 Weight 127.369 kg Alert oriented Nonlabored breathing Minimal back pain No anxiety Intake & Output: Intake & Output 12/01/20 12/02/20 12/02/20 21:59 05:59 13:59 Intake Total 250 927 1742 Output Total 925 750 625 Balance -805 -10 665 Weight 127.369 kg Intake: IV 500 1050 Sodium Chloride 0.9% 1,000 ml @ 1000 50 mls/hr IV .Q20H [facility] Rx#: [id number] Vancomycin 2,000 mg In Sodium 500 Chloride 0.9% 500 ml @ 250 mls/ hr IV Q12H [facility] Rx#:[id number] Rocephin 2 gm In Dextrose 5% in 50 Water 50 ml @ 100 mls/hr IV Q24H [facility] Rx#:[id number] Oral 120 240 240 Output: Void Amount 925 750 625 Other: Meal Dinner Percent of Meal Consumed 100% Feeding Ability Independent Urine Appearance Clear Clear Urine Color Bright Yellow Dark Yellow Dark Yellow Light Echo Urine Odor Normal Normal OBJ DATA Labs CBC & Chem 7: 12/02/20 05:12 12/02/20 05:12 Labs: Abnormal Lab Results 12/02/20 12/02/20 12/01/20 05:12 05:12 05:23 RBC 3.25 L Hgb 10.0 L Hct 29.4 L Lymph # (Auto) 1.17 L Sodium 132 L Potassium Anion Gap 4.0 L 7.0 L Creatinine 0.5 L 0.5 L Calcium 8.2 L 8.3 L Direct Bilirubin GGT 136 H 143 H Albumin 2.3 L 2.6 L Globulin 4.4 H 4.5 H Albumin/Globulin Ratio 0.5 L 0.6 L 12/01/20 11/30/20 11/30/20 05:23 05:15 05:00 RBC 3.52 L 3.42 L Hgb 10.7 L 10.4 L Hct 31.5 L 30.6 L Lymph # (Auto) 1.02 L 0.89 L Sodium Potassium 3.2 L Anion Gap Creatinine 0.5 L Calcium 8.4 L Direct Bilirubin 0.3 H GGT 148 H Albumin 2.8 L Globulin 4.8 H Albumin/Globulin Ratio 0.6 L Meds: Medications Acetaminophen (Acetaminophen 325 Mg Tablet) 650 mg PO Q4-6HP PRN; Protocol PRN Reason: Per Pain Protocol/Fever > 101 Aspirin (Aspirin 81 Mg Tab.Chew) 81 mg PO DAILY [facility] Last Admin: 12/02/20 08:00 Dose: 81 mg Documented by: Bisacodyl (Bisacodyl 10 Mg Supp.Rect) 10 mg WI Q2-3DAYS PRN PRN Reason: Constipation Cyclobenzaprine HCl (Cyclobenzaprine 10 Mg Tablet) 10 mg PO TIDP PRN PRN Reason: Spasms Last Admin: 12/01/20 07:19 Dose: 10 mg Documented by: Dextrose (Dextrose 50% 50 Ml Vial) 0 ml IV UD PRN PRN Reason: Hypoglycemia Diagnostic Test (Pha) (Accu-Chek 1 Each Strip) 1 each FS ACHS [facility] Last Admin: 12/02/20 08:01 Dose: 1 each Documented by: Docusate Sodium (Docusate Sodium 100 Mg Capsule) 100 mg PO BID [facility] Last Admin: 12/02/20 08:00 Dose: 100 mg Documented by: Duloxetine HCl (Duloxetine 30 Mg Capsule) 60 mg PO QDAY [facility] Last Admin: 12/02/20 08:00 Dose: 60 mg Documented by: Ergocalciferol (Ergocalciferol (Vitamin D2) 50,000 Unit Capsule) 50,000 unit PO Q14D [facility] Gabapentin (Gabapentin 300 Mg Capsule) 600 mg PO HS [facility] Last Admin: 12/01/20 20:58 Dose: 600 mg Documented by: Glucose (Dextrose 31 Gm Oral.Susp) 15 gm PO PRN PRN PRN Reason: Hypoglycemia Heparin Sodium (Porcine) (Heparin 5,000 Unit/Ml Vial) 5,000 unit SQ Q12 [facility] Last Admin: 12/02/20 08:00 Dose: 5,000 unit Documented by: Heparin Sodium (Porcine) (Heparin Flush 10 Units/Ml 5 Ml Syringe) 2 ml IV Q12 [facility] Last Admin: 12/02/20 07:58 Dose: 2 ml Documented by: Hydromorphone HCl (Hydromorphone 0.5 Mg/0.5 Ml Syringe) 0.25 - 0.5 mg IV Q4HP PRN; Protocol PRN Reason: Per Pain Protocol Last Admin: 12/01/20 16:51 Dose: 0.5 mg Documented by: Potassium Chloride 40 meq/ (Dextrose) 520 mls @ 130 mls/hr IV UD PRN PRN Reason: K+ = or < 3.5 Last Infusion: 11/30/20 18:44 Dose: Infused Documented by: Acetaminophen (Ofirmev) 650 mg in 65 mls @ 130 mls/hr IV Q6HP PRN; Protocol PRN Reason: Per Pain Protocol/Fever > 101 Magnesium Sulfate (Magnesium Sulfate) 2 gm in 50 mls @ 50 mls/hr IV UD PRN PRN Reason: MG = or < 1.7 Last Infusion: 12/01/20 12:07 Dose: Infused Documented by: Ceftriaxone Sodium 2 gm/ (Dextrose) 50 mls @ 100 mls/hr IV Q24H [facility]; Protocol Last Infusion: 12/02/20 09:49 Dose: Infused Documented by: Vancomycin HCl 2,000 mg/ (Sodium Chloride) 500 mls @ 250 mls/hr IV Q12H [facility] Last Admin: 12/02/20 09:19 Dose: 250 mls/hr Documented by: Insulin Glargine (Insulin Glargine, Human 1 Unit/0.01 Ml) 14 unit SQ HS [facility] Last Admin: 12/01/20 20:54 Dose: 14 units Documented by: Insulin Human Lispro (Insulin Lispro 1 Unit/0.01 Ml Unit) 0 unit SQ ACHS [facility]; Protocol Last Admin: 12/02/20 08:01 Dose: Not Given Documented by: Iron Carb/Multivit/Comal/Folic Acid (Multivit,Ther Iron,Ca,Fa & Min 1 Tablet) 1 tab PO DAILY [facility] Last Admin: 12/02/20 08:00 Dose: 1 tab Documented by: Lidocaine (Lidocaine Patch) 1 patch TOPICAL Q24HP PRN PRN Reason: Pain Last Admin: 11/30/20 21:34 Dose: 1 patch Documented by: Lisinopril (Lisinopril 20 Mg Tablet) 20 mg PO DAILY [facility] Last Admin: 12/02/20 08:00 Dose: 20 mg Documented by: Melatonin (Melatonin 3 Mg Tablet) 3 mg PO HSP PRN PRN Reason: Insomnia Last Admin: 12/01/20 21:12 Dose: 3 mg Documented by: Morphine Sulfate (Morphine 15 Mg Tablet) 30 mg PO Q6HP PRN PRN Reason: breakthrough pain Last Admin: 11/30/20 17:04 Dose: 30 mg Documented by: Morphine Sulfate (Morphine 30 Mg Tab.Sr.12h) 90 mg PO BID [facility]; Protocol Last Admin: 12/02/20 07:59 Dose: 90 mg Documented by: Ondansetron HCl (Ondansetron 4 Mg Odt Tablet) 4 mg SL Q4-6HP PRN; Protocol PRN Reason: Nausea And Vomiting Ondansetron HCl (Ondansetron 4 Mg/2 Ml Vial) 4 mg IV Q4-6HP PRN; Protocol PRN Reason: Nausea And Vomiting Pantoprazole Sodium (Pantoprazole 40 Mg Tablet) 40 mg PO BIDAC [facility] Last Admin: 12/02/20 08:00 Dose: 40 mg Documented by: Polyethylene Glycol (Polyethylene Glycol 3350 17 Gm Packet) 17 gm PO DAILYP PRN PRN Reason: Constipation Senna/Docusate Sodium (Sennosides/Docusate Sodium 1 Tab Tablet) 1 tab [address] [facility] Last Admin: 12/01/20 20:57 Dose: 1 tab Documented by: Simethicone (Simethicone 80 Mg Tab.Chew) 80 mg CHEWED QIDP PRN PRN Reason: Dyspepsia Last Admin: 11/30/20 22:48 Dose: 80 mg Documented by: Simvastatin (Simvastatin 10 Mg Tablet) 10 mg [address] [facility] Last Admin: 12/01/20 20:58 Dose: 10 mg Documented by: Sitagliptin Phosphate (Sitagliptin 100 Mg Tablet) 100 mg PO DAILY [facility] Last Admin: 12/02/20 08:00 Dose: 100 mg Documented by: Sodium Chloride (0.9 % Sodium Chloride 10 Ml Syringe) 10 ml IV Q8 [facility] Last Admin: 12/02/20 05:46 Dose: Not Given Documented by: Sodium Chloride (0.9 % Sodium Chloride 10 Ml Syringe) 10 ml IV UD PRN PRN Reason: FLUSH Sodium Chloride (0.9 % Sodium Chloride 10 Ml Syringe) 10 ml IV Q12 [facility] Last Admin: 12/02/20 09:20 Dose: 10 ml Documented by: Sucralfate (Sucralfate 1 Gm/10 Ml Oral.Susp) 1 gm PO TIDAC [facility] Last Admin: 12/02/20 08:00 Dose: 1 gm Documented by: Tamsulosin HCl (Tamsulosin 0.4 Mg Capsule) 0.4 mg PO DAILY [facility] Last Admin: 12/02/20 08:00 Dose: 0.4 mg Documented by: Trazodone HCl (Trazodone Hcl 50 Mg Tablet) 25 mg PO QHS PRN PRN Reason: Sleep Last Admin: 12/01/20 21:13 Dose: 25 mg Documented by: Vancomycin HCl (Vancomycin Per Pharmacy) 1 order IV UD [facility]; Protocol A/P Narrative A/P Narrative: * T9/T10 discitis/abscess with osteomyelitis-status post CT-guided disc aspiration. GPC on cultures. On antibiotics per ID. PICC line secured for extended duration antibiotics * DM type II continue basal prandial insulin/CC diet * History of hypertension stable on home dose enalapril * Esophagitis with gastritis as noted on EGD 11/28. Continue sucralfate/PPI * Anxiety disorder continue duloxetine * Chronic pain on morphine 100 mg twice daily/intermediate release 30 as needed * Hyperlipidemia on simvastatin * History of hypertension continue DAPHNE inhibitor * History neuropathy continue gabapentin * BPH continue tamsulosin * Full code Plan * Continue antibiotics per ID * Await echo * Pre-existing medical condition management on home medications as above * PT OT nutrition support * Discharge planning per case management Time Spent With Patient Time: Total time spent is greater than 50% in coordination of care (as documented) at patient's floor/unit and/or counseling patient: QUALITY VTE Deep Vein Thrombosis/Pulmonary Embolism Present on Admission: No
[2020-12-02] MEDS ORDERED: LIDOCAINE 1% 20 ML VIAL SQ ONE (15:17)
[2020-12-02] MEDS ORDERED: BISACODYL 10 MG SUPP.RECT PR PRN (15:17)
[2020-12-02] MEDS ORDERED: LIDOCAINE PATCH TOPICAL PRN (15:17)
[2020-12-02] MEDS ORDERED: ACETAMINOPHEN 650 MG/65 ML BAG IV PRN (15:17)
[2020-12-02] MEDS ORDERED: POLYETHYLENE GLYCOL 3350 17 GM PACKET PO PRN (15:17)
[2020-12-02] MEDS ORDERED: 0.9 % SODIUM CHLORIDE 10 ML SYRINGE IV PRN (15:17)
[2020-12-02] MEDS ORDERED: DEXTROSE 31 GM ORAL.SUSP PO PRN (15:17)
[2020-12-02] MEDS ORDERED: MAGNESIUM SULFATE 2 GM/50 ML BAG IV PRN (15:17)
[2020-12-02] MEDS ORDERED: MELATONIN 3 MG TABLET PO PRN (15:17)
[2020-12-02] MEDS ORDERED: VANCOMYCIN PER PHARMACY IV SCH (15:17)
[2020-12-02] MEDS ORDERED: ACETAMINOPHEN 325 MG TABLET PO PRN (15:17)
[2020-12-02] MEDS ORDERED: traZODone HCL 50 MG TABLET PO PRN (15:17)
[2020-12-02] MEDS ORDERED: DEXTROSE 50% 50 ML VIAL IV PRN (15:17)
[2020-12-02] MEDS ORDERED: ONDANSETRON 4 MG ODT TABLET SL PRN (15:17)
[2020-12-02] MEDS ORDERED: morphine 15 MG TABLET PO PRN (15:17)
[2020-12-02] MEDS ORDERED: ONDANSETRON 4 MG/2 ML VIAL IV PRN (15:17)
[2020-12-02] MEDS ORDERED: SIMETHICONE 80 MG TAB.CHEW CHEWED PRN (15:17)
[2020-12-02] MEDS ORDERED: POTASSIUM CHLORIDE 40 MEQ in DEXTROSE 5% IN WATER 500 ML IV PRN (15:17)
[2020-12-02] MEDS: HYDROmorphone 0.5 MG/0.5 ML SYRINGE IV PRN (18:41)
[2020-12-02] MEDS ORDERED: POTASSIUM CHLORIDE 20 MEQ/10 ML VIAL IV ONE (20:58)
[2020-12-02] MEDS ORDERED: SENNOSIDES/DOCUSATE SODIUM 1 TAB TABLET PO SCH (21:00)
[2020-12-02] MEDS ORDERED: INSULIN GLARGINE, HUMAN 1 UNIT/0.01 ML SQ SCH (21:00)
[2020-12-02] MEDS ORDERED: GABAPENTIN 300 MG CAPSULE PO SCH (21:00)
[2020-12-02] MEDS ORDERED: SIMVASTATIN 10 MG TABLET PO SCH (21:00)
[2020-12-02] MEDS: CYCLOBENZAPRINE 10 MG TABLET PO PRN (21:09)
[2020-12-02] MEDS ORDERED: 0.9 % SODIUM CHLORIDE 10 ML SYRINGE IV SCH (22:00)
[2020-12-03 06:50] LABS: Basophils # (Auto) 0.03 K/mcL (0.00-0.20); Basophils % (Auto) 0.6 % (0.0-2.0); Eosinophils # (Auto) 0.24 K/mcL (0.00-0.70); Hematocrit 30.9 % (41.0-55.0); Hemoglobin 10.2 g/dL (13.5-16.5); Lymphocytes # (Auto) 0.99 K/mcL (1.50-4.80); Lymphocytes % (Auto) 20.5 % (15.0-49.0); Mean Cell Volume 91.7 fL (80.0-100.0); Mean Platelet Volume 8.5 fL (7.4-10.4); Monocytes # (Auto) 0.54 K/mcL (0.10-0.90); Monocytes % (Auto) 11.2 % (1.0-12.0); Neutrophils % (Auto) 62.7 % (38.0-78.0); Platelet Count 156 K/mcL (140-440); RBC 3.37 M/mcL (4.50-5.90); Red Cell Distribution Width 13.9 % (11.5-14.5); WBC 4.8 K/mcL (4.5-11.0)
[2020-12-03] MEDS: INSULIN LISPRO 1 UNIT/0.01 ML UNIT SQ SCH ×2 (07:42→11:31)
[2020-12-03 07:54] LABS: ALT/SGPT 15 U/L (<40); AST/SGOT 31 U/L (<40); Albumin 2.5 gm/dL (3.2-5.2); Albumin/Globulin Ratio 0.6 (1.0-2.3); Alkaline Phosphatase 121 U/L (39-117); Bilirubin,Direct < 0.2 mg/dL (0-0.3); Bilirubin,Total 0.4 mg/dL (0.1-1.0); Blood Urea Nitrogen 8 mg/dL (8-23); Calcium 8.3 mg/dL (8.6-10.4); Carbon Dioxide 27 mmol/L (22-30); Chloride 101 mmol/L (96-108); Globulin 4.2 gm/dL (2.2-3.7); Glomerular Filtration Rate 110; Glucose 90 mg/dL (70-105); Lactate Dehydrogenase 188 U/L (135-225); Phosphorous 3.6 mg/dL (2.5-4.5); Triglycerides 90 mg/dL (<150); Uric Acid 3.4 mg/dL (2.5-8.0)
[2020-12-03] MEDS: CYCLOBENZAPRINE 10 MG TABLET PO PRN ×2 (07:54→12:38)
[2020-12-03] MEDS: SUCRALFATE 1 GM/10 ML ORAL.SUSP PO SCH ×2 (07:54→11:35)
[2020-12-03] MEDS: morphine 30 MG TAB.SR.12H PO SCH (07:54)
[2020-12-03] MEDS: HEPARIN 5,000 UNIT/ML VIAL SQ SCH (07:55)
[2020-12-03] MEDS: DOCUSATE SODIUM 100 MG CAPSULE PO SCH (07:55)
[2020-12-03] MEDS: PANTOPRAZOLE 40 MG TABLET PO SCH (07:56)
[2020-12-03] MEDS: HYDROmorphone 0.5 MG/0.5 ML SYRINGE IV PRN ×2 (07:56→12:38)
[2020-12-03] MEDS: 0.9 % SODIUM CHLORIDE 10 ML SYRINGE IV SCH (07:57)
[2020-12-03] MEDS ORDERED: DULoxetine 30 MG CAPSULE PO SCH (09:00)
[2020-12-03] MEDS ORDERED: cefTRIAXone 2 GM in DEXTROSE 5% IN WATER 50 ML IV SCH (09:00)
[2020-12-03] MEDS ORDERED: MULTIVIT,THER IRON,CA,FA & MIN 1 TABLET PO SCH (09:00)
[2020-12-03] MEDS ORDERED: TAMSULOSIN 0.4 MG CAPSULE PO SCH (09:00)
[2020-12-03] MEDS ORDERED: sitaGLIPtin 100 MG TABLET PO SCH (09:00)
[2020-12-03] MEDS ORDERED: ASPIRIN 81 MG TAB.CHEW PO SCH (09:00)
[2020-12-03] MEDS ORDERED: LISINOPRIL 20 MG TABLET PO SCH (09:00)
[2020-12-03] MEDS: VANCOMYCIN 2,000 MG in 0.9 % SODIUM CHLORIDE 500 ML IV SCH (09:44)
--- NOTE | 2020-12-03 11:19 | Discharge Summary ---
Discharge Provider Provider Patient information: Note initiated : 12/03/20 at 11:14 am Service Date, if different from initiated Date: [] Patient: Flex Chavez 70 y/o M admitted on 11/28/20 for abdominal pain. Discharge diagnosis * T9/T10 discitis/abscess with osteomyelitis-status post CT-guided disc aspiration. Coag negative multidrug-resistant staph aureus on culture. Continue IV vancomycin for additional 8 weeks, follow-up with ID in 2 weeks along with weekly labs. XCBC/BMP/ESR/CRP. PICC line secured for extended duration antibiotics. Transfer to [facility] * DM type II continue basal prandial insulin/CC diet * History of hypertension stable on home dose enalapril * Esophagitis with gastritis as noted on EGD 11/28. Continue sucralfate/PPI * Anxiety disorder continue duloxetine * Chronic pain on morphine 100 mg twice daily/intermediate release 30 as needed * Hyperlipidemia on simvastatin * History of hypertension continue DAPHNE inhibitor * History neuropathy continue gabapentin * BPH continue tamsulosin Brief hospital course Mr. Keeley Mo is a 70 year old M morbidly obese with a history of chronic pain on 300 mg morphine a day/DM type II/HTN/anxiety/(who presents to the ER with increasing weakness/abdominal pain. Patient has had the symptoms for a while and underwent EGD as an Luis today by Dr. Lovelace that revealed gastritis. However he was advised to go to the ER because symptoms were out of proportion to the findings of endoscopy. Notably patient has been progressively getting weaker over the last month since he was admitted at [place] [facility] on October 25 this year. He has noted gradual decline in functionality/associate loss of appetite/lower back pain/malaise/drenching sweats and fever. Night before last he was evaluated at [facility] with similar symptoms. CT scan revealed T9-T10 suspected discitis/vertebral osteomyelitis however he was discharged home after short treatment in ER During today's work-up at [facility] White count 5.4, ESR 93, sodium 135, creatinine 0.5, CRP 3.6, lipase 21.CT scan reviewed from [facility] for T9-T10 discitis/bilateral nonobstructive nephrolithiasis. Patient was started on antibiotics after cultures were drawn. Subsequently hospitalist service was consulted. At the time of my evaluation patient is alert but anxious. He is accompanied with his Alice. She was able to answer most the question and provide history as above. He denies loss of bladder function or stool or urine incontinence. Further denies lower extremity abnormal sensation/weakness/jerking movements. He denies joint pain, rash, headache, photophobia but endorses to generalized malaise weakness fatigue and persistent abdominal pain associated nausea and vomiting. 11/29-patient currently on Rocephin/vancomycin. Case discussed with urology. No clear benefit of CT myelogram. Radiologist recommends continuation of antibiotics as disc space is hard to access for aspiration to rule out infection and the fact that patient has been on antibiotics for over 10 days will likely do a steroid tap. Will consult infectious specialist while continuing vancomycin Rocephin per guidelines for management discitis. No evidence of lower extremity weakness/incontinence or cord compression. Complains of abdominal discomfort/burning sensation. Recent EGD gastritis noted. Started on sucralfate/Protonix. On oral narcotics for chronic pain 11/30-patient doing clinically better. Status post disc abscess aspiration under CT guidance. Sent for evaluation. ID on board. Continue vancomycin/Rocephin. Back pain at baseline requiring home dose morphine/Dilaudid. Complains of heartburn currently on PPI. Discussed treatment plan and goals of care with Alice. PICC line secured. Cultures negative so far. On diabetic diet. No overnight fever chills or additional concerns per nursing staff. 12/01-patient doing well overnight. Complains of persistent back pain on opioids. GPC on disc aspirate cultures. No overnight fever chills. No additional concerns per nursing staff. Stable labs and hemodynamics. Continue antibiotic coverage per ID 12/02-patient feeling better. Back pain improving. On antibiotic coverage. GPC on wound culture. Continue Rocephin vancomycin. No overnight events. Stable pre-existing medical condition. Denies fever chills. No family at bedside. Tolerating diet. Ongoing therapies. 12/03-patient doing better. Coag negative staph on disc aspirate. Continue vancomycin for [address] [facility] for continued IV vancomycin for 8 weeks/therapies. Case discussed with ID. Recommends weekly labs along with follow-up with infectious specialist in [address] Pfeiffer. Date of admission: 11/28/20 22:09 Discharge date: 12/03/20 Primary care physician: Luis Manuel Gil Consults: 11/28/20 Consult to Physician [CONS] Stat Comment: Consulting Provider: Real Roque Reason For Exam: Physician to Consult 11/28/20 22:46 Consult to Physician [CONS] Routine Comment: Consulting Provider: Armani Pfeiffer Reason For Exam: Physician to Consult 11/29/20 12:09 Consult to Physician [CONS] Routine Comment: Consulting Provider: Armani Pfeiffer Reason For Exam: Physician to Consult Discharge Meds Discharge Medications Home Medications aspirin [Ecotrin Low Strength] 81 mg PO DAILY 02/09/15 [History Confirmed 11/29/20 Last Taken 11/27/20] gabapentin 600 mg PO HS 02/09/15 [History Confirmed 11/29/20 Last Taken 11/27/20] metformin 1,000 mg PO BIDCC 02/09/15 [History Confirmed 11/29/20 Last Taken 11/27/20] simvastatin 10 mg PO HS 02/09/15 [History Confirmed 11/29/20 Last Taken 11/27/20] Lantus U-100 Insulin 40 unit SQ HS 10/01/15 [History Confirmed 11/29/20 Last Taken 11/25/20] Stool Softener 100 mg PO BID 10/01/15 [History Confirmed 11/29/20 Last Taken 11/27/20] insulin aspart U-100 [Novolog U-100 Insulin aspart] See Protocol SQ AC 10/01/15 [History Confirmed 11/29/20 Last Taken 11/25/20] lidocaine See Rx Instructions .ROUTE .COMPLEX PRN 10/01/15 [History Confirmed 11/29/20 Last Taken 11/25/20] tamsulosin 0.4 mg PO DAILY 10/01/15 [History Confirmed 11/29/20 Last Taken ] ergocalciferol (vitamin D2) [Vitamin D2] See Rx Instructions .ROUTE .COMPLEX 10/09/15 [History Confirmed 11/29/20 Last Taken 10/05/15] duloxetine 60 mg capsule,delayed release sprinkle 30 mg PO QDAY 01/19/20 [History Confirmed 11/28/20 Last Taken 11/27/20 09:00] naloxone 4 mg/actuation nasal spray 4 mg INTRANASAL Q2M #2 each 08/16/20 [Rx Confirmed 11/28/20 Last Taken Unknown] morphine 100 mg tablet,extended release 100 mg PO BID #60 tab MDD 2 11/20/20 [Rx Confirmed 11/29/20 Last Taken Unknown] morphine 30 mg immediate release tablet 30 mg PO Q6H PRN #60 tab 11/20/20 [Rx Confirmed 11/29/20 Last Taken Unknown] dulaglutide 1.5 mg SUBCUT WEEKLY 11/29/20 [History Confirmed 11/29/20 Last Taken 11/21/20] lisinopril 40 mg PO QDAY 11/29/20 [History Confirmed 11/29/20 Last Taken 11/27/20] nystatin 15 unit PO TID 11/29/20 [History Confirmed 11/29/20 Last Taken 11/25/20] omeprazole 20 mg PO QDAY 11/29/20 [History Confirmed 11/29/20 Last Taken 11/27/20] polyethylene glycol 3350 [Miralax] 17 g PO QDAY 11/29/20 [History Confirmed 11/29/20 Last Taken 11/18/20] trazodone 25 mg PO QHS PRN 11/29/20 [History Confirmed 11/29/20 Last Taken 11/27/20] vancomycin in 0.9 % sodium chl 2 g IV Q12H 56 Days #26831 ml 12/03/20 [Rx Last Taken Unknown] COURSE Hospital Course Hospital course: . Discharge diagnosis: . Time Spent with Patient Time attestation: Total time spent providing and/or coordinating discharge se rvices: EXAM Constitutional Vitals: Temp Pulse Resp BP Pulse Ox 98.9 F 74 16 138/65 98 12/03/20 04:00 12/03/20 04:00 12/03/20 04:00 12/03/20 04:00 12/03/20 04:00 Discharge Data Data Completed and Pending Labs on day of discharge: Labs from last 24 hours 12/03/20 12/03/20 11/29/20 05:15 05:15 12:00 WBC 4.8 RBC 3.37 L Hgb 10.2 L Hct 30.9 L MCV 91.7 MCH 30.3 MCHC 33.0 RDW 13.9 Plt Count 156 MPV 8.5 Neut % (Auto) 62.7 Lymph % (Auto) 20.5 [place] % (Auto) 11.2 Eos % (Auto) 5.0 Baso % (Auto) 0.6 Lymph # (Auto) 0.99 L [place] # (Auto) 0.54 Eos # (Auto) 0.24 Baso # (Auto) 0.03 Absolute Neutrophils 3.03 Sodium 134 Potassium 3.7 Chloride 101 Carbon Dioxide 27 Anion Gap 6.0 L BUN 8 Creatinine 0.5 L GFR Calculation 110 Glucose 90 Uric Acid 3.4 Calcium 8.3 L Phosphorus 3.6 Magnesium 1.8 Total Bilirubin 0.4 Direct Bilirubin < 0.2 GGT 141 H AST 31 ALT 15 Alkaline Phosphatase 121 H Lactate Dehydrogenase 188 Total Protein 6.7 Albumin 2.5 L Globulin 4.2 H Albumin/Globulin Ratio 0.6 L Triglycerides 90 Miscellaneous Test Pending Preliminary micro results at discharge 11/28/20 20:10 Blood Culture - Preliminary Blood 11/28/20 20:04 Blood Culture - Preliminary Blood 11/29/20 12:00 Gram Stain - Preliminary Abscess Anaerobic Culture - Preliminary Discharge Plan Patient/Caregiver Discharge Instructions Activity: increase activity as tolerated Diet: Consistent Carbohydrate Activity Restrictions/Additional Instructions: Continue IV vancomycin for 8 weeks, dosing based on trough to be managed at [facility] Follow-up with infectious specialist Dr. Armani pfeiffer in 2 weeks Weekly labs including CBC/BMP/ESR/CRP Continue PT OT and nutrition support as required PICC line care Prescriptions: New vancomycin in 0.9 % sodium chl 2 gram/500 mL solution 2 g IV Q12H 56 Days Qty: 71224 RF: 0 Continued Narcan 4 mg/actuation spray,non-aerosol 4 mg INTRANASAL Q2M Qty: 2 RF: 0 duloxetine 60 mg capsule, delayed rel sprinkle 30 mg PO QDAY RF: 0 morphine 100 mg tablet extended release 100 mg PO BID MDD 2 Qty: 60 RF: 0 morphine 30 mg tablet 30 mg PO Q6H PRN (Reason: breakthrough pain) Qty: 60 RF: 0 metformin 500 MG tablet 1,000 mg PO BIDCC RF: 0 gabapentin 600 MG tablet 600 mg PO HS RF: 0 simvastatin 10 MG tablet 10 mg PO HS RF: 0 aspirin [Ecotrin Low Strength] 81 MG tablet,delayed release (DR/EC) 81 mg PO DAILY RF: 0 Lantus U-100 Insulin 1 UNIT/0.01 ML unit 40 unit SQ HS RF: 0 Stool Softener 50 MG capsule 100 mg PO BID RF: 0 tamsulosin 0.4 MG capsule 0.4 mg PO DAILY RF: 0 insulin aspart U-100 [Novolog U-100 Insulin aspart] 100 UNIT/ML solution See Protocol unit SQ AC RF: 0 lidocaine 1 EACH adhesive patch,medicated See Rx Instructions .ROUTE .COMPLEX PRN (Reason: Pain) RF: 0 ergocalciferol (vitamin D2) [Vitamin D2] 50,000 UNIT capsule See Rx Instructions .ROUTE .COMPLEX RF: 0 polyethylene glycol 3350 [Miralax] 17 gram Powder In Packet 17 g PO QDAY RF: 0 lisinopril 40 mg Tablet 40 mg PO QDAY RF: 0 trazodone 50 mg Tablet 25 mg PO QHS PRN (Reason: Sleep) RF: 0 omeprazole 20 mg Capsule,Delayed Release(Dr/Ec) 20 mg PO QDAY RF: 0 nystatin 1 billion unit Powder 15 unit PO TID RF: 0 dulaglutide 1.5 mg/0.5 mL Pen Injector 1.5 mg SUBCUT WEEKLY RF: 0 Follow Up Plan Follow up with: Luis Manuel Gil MD [Primary Care Provider] - Patient Disposition: [facility] Rehab Potential: Fair I certify that the patient requires SNF services: Yes Overall status at discharge: patient is progressing back to baseline Discharge Orders: Discharge Order (Routine); Ordered 12/03/20 Ordered By: Real PRITCHARD VTE Deep Vein Thrombosis/Pulmonary Embolism Present on Admission: No
--- NOTE | 2020-12-03 16:41 | Surgical Pathology Report ---
Histology Microscopic Diagnosis Specimen A- SOFT TISSUE, T9-T10 INTERVERTEBRAL DISC, NEEDLE CORE BIOPSY: --- MINUTE FRAGMENTS OF SOFT TISSUE WITH MARKED NEUTROPHILIC INFLAMMATION, CONSISTENT WITH ABSCESS/ACUTE DISCITIS; SEE COMMENT. --- NO MALIGNANCY IDENTIFIED. (DMT) Procedural Impression Discitis; osteomyelitis. Gross Description Received in formalin designated T9-T10 disc, are multiple ferreira tissue fragments in aggregate 0.3 x 0.1 by less than 0.1 cm. The specimen is filtered. Totally submitted in one cassette. (SCB:adj) Electronically Signed Armani Owens MD, FCAP Electronically Signed 12/03/2020 16:40
[2020-12-08] MEDS ORDERED: ERGOCALCIFEROL (VITAMIN D2) 50,000 UNIT CAPSULE PO SCH ×2 (09:00)
== END 2020-12-03 13:15 | disposition other institution (70) | DRG 540 ==
LOC: ED 17:04 → ICU 22:09
PROVIDERS: ADMIT Internal Medicine; ATTEND Internal Medicine